=== PATIENT | male | born 1975 | race Caucasian/White ===

== ENCOUNTER 2017-02-17 15:40 | Inpatient (IN) | payer MEDICARE, MEDICAID ==
--- NOTE | 2017-02-17 16:24 | ED ---
Psych HPI - General Chief Complaint: Psychiatric Symptoms Stated Complaint: Mental Health Eval Time Seen by Provider: 02/17/17 15:55 Source: patient, RN notes reviewed Mode of arrival: ambulatory Limitations: no limitations - History of Present Illness Initial Comments: 41-year-old male presents emergency Department with chief complaint of psychiatric evaluation. Patient states that he is depressed, suicidal and very anxious. Patient states that he's been stable for lasted for years. He has not see [facility] currently but states he used to. Patient states his been having thoughts of overdosing on medication that is not attempted this. Patient states he has been hospitalized in the past. Patient denies any physical complaints. Patient states usually has problems with his psychiatric issues in the spring. Patient states that his anxiety is uncontrolled. Patient denies any illicit drug use or alcohol use. - Related Data Home Medications Medication Instructions Recorded Confirmed Fluticasone Nasal [place] [Flonase 1 spray EA NOSTRIL QAM PRN 02/11/16 02/17/17 Nasal [place]] Propranolol HCl [Inderal] 60 mg PO BID 02/11/16 02/17/17 ARIPiprazole [Abilify] 15 mg PO HS 07/13/16 02/17/17 Levothyroxine Sodium [Synthroid] 50 mcg PO QAM 07/13/16 02/17/17 lamoTRIgine [LaMICtal] 150 mg PO HS 07/13/16 02/17/17 Acetaminophen Tab [Tylenol Tab] 1,000 mg PO TID PRN 02/17/17 02/17/17 Tiotropium 18 Mcg/Puff [Spiriva] 1 cap INHALATION RT-DAILY 02/17/17 02/17/17 Previous Rx's Medication Instructions Recorded buPROPion XL [Wellbutrin XL] 150 mg PO DAILY #30 tab.[id number] 02/14/16 Allergies Allergy/AdvReac Type Severity Reaction Status Date / Time montelukast sodium Allergy Severe Swelling Verified 02/17/17 17:03 [From [place]] codeine Allergy Rash/Hives/ Verified 02/17/17 17:03 Itching Review of Systems ROS Statement: Those systems with pertinent positive or pertinent negative responses have been documented in the HPI. ROS Other: All systems not noted in ROS Statement are negative. Past Medical History Past Medical History: COPD, Liver Disease Additional Past Medical History / Comment(s): hepatitis b and c (per pt: "not detectable). bipolar type II, borderline personality disorder History of Any Multi-Drug Resistant Organisms: None Reported Additional Past Surgical History / Comment(s): deviated septum repair, dental extractions Past Anesthesia/Blood Transfusion Reactions: Family History of Problems w/ Anesthesia Additional Past Anesthesia/Blood Transfusion Reaction / Comment(s): Pt's. sisters b/p dropped while under anesthesia Past Psychological History: Anxiety, Bipolar, Depression Smoking Status: Current every day smoker Past Alcohol Use History: Occasional Past Drug Use History: None Reported - Past Family History Mother Family Medical History: COPD Additional Family Medical History / Comment(s): Bipolar D.O. Father Family Medical History: Cancer, Coronary Artery Disease (CAD), Hypertension, Liver Disease, Myocardial Infarction ([place]) Additional Family Medical History / Comment(s): Five MA's; Hep C and Liver Cancer General Exam Limitations: no limitations General appearance: alert, in no apparent distress Head exam: Present: atraumatic, normocephalic, normal inspection Eye exam: Present: normal appearance, PERRL, EOMI. Absent: scleral icterus, conjunctival injection, periorbital swelling ENT exam: Present: normal exam, normal oropharynx, mucous membranes moist, TM's normal bilaterally, normal external ear exam Neck exam: Present: normal inspection, full ROM. Absent: tenderness, meningismus, lymphadenopathy Respiratory exam: Present: normal lung sounds bilaterally. Absent: respiratory distress, wheezes, rales, rhonchi, stridor Cardiovascular Exam: Present: regular rate, normal rhythm, normal heart sounds. Absent: systolic murmur, diastolic murmur, rubs, gallop, clicks GI/Abdominal exam: Present: soft, normal bowel sounds. Absent: distended, tenderness, guarding, rebound, rigid Neurological exam: Present: alert Psychiatric exam: Present: anxious Skin exam: Present: warm, dry, intact, normal color. Absent: rash Course Vital Signs 02/17/17 15:49 Temperature 98.3 F Pulse Rate 75 Respiratory 20 Rate Blood Pressure 122/87 O2 Sat by Pulse 97 Oximetry Medical Decision Making - Lab Data Lab Results 02/17/17 Range/Units 16:03 Urine Opiates Screen Not Detected (NotDetected) Ur Oxycodone Screen Not Detected (NotDetected) Urine Methadone Screen Not Detected (NotDetected) Ur Propoxyphene Screen Not Detected (NotDetected) Ur Barbiturates Screen Not Detected (NotDetected) U Tricyclic Antidepress Not Detected (NotDetected) Ur Phencyclidine Scrn Not Detected (NotDetected) Ur Amphetamines Screen Not Detected (NotDetected) U Methamphetamines Scrn Not Detected (NotDetected) U Benzodiazepines Scrn Not Detected (NotDetected) Urine Cocaine Screen Not Detected (NotDetected) U Marijuana (THC) Screen Detected H (NotDetected) Disposition Clinical Impression: Suicidal ideation, Depression Disposition: ADMITTED IP TO THIS HOSP Condition: Stable
[2017-02-17] MEDS ORDERED: LORazepam 1 MG TAB PO STA (18:32)
[2017-02-17] MEDS ORDERED: MAGNESIUM HYDROXIDE 2,400 MG/10 ML CUP PO PRN (22:41)
[2017-02-17] MEDS ORDERED: ZIPRASIDONE 20 MG VIAL IM PRN (22:41)
[2017-02-18 00:59] VITALS: BMI 26.4
[2017-02-18] MEDS: LEVOTHYROXINE 50 MCG TAB PO SCH (06:09)
[2017-02-18] MEDS ORDERED: PROPRANOLOL 20 MG TAB PO SCH (09:00)
[2017-02-18] MEDS ORDERED: lamoTRIgine 100 MG TAB PO SCH (09:00)
[2017-02-18] MEDS ORDERED: ARIPiprazole 15 MG TAB PO SCH (09:00)
[2017-02-18] MEDS: NICOTINE 14MG/24HR PATCH TRANSDERM SCH (09:05)
[2017-02-18] MEDS: LORazepam 1 MG TAB PO PRN ×2 (09:05→17:26)
[2017-02-18] MEDS: TIOTROPIUM 18 MCG/PUFF INHALER INHALATION SCH ×2 (09:19→17:27)
[2017-02-18 09:45] LABS: Basophils # (A) 0.1 k/uL (0-0.2); Basophils % (A) 1 %; CH 30.4; CHCM 34.2; Eosinophils # (A) 0.2 k/uL (0-0.7); Eosinophils % (A) 2 %; HCT 51.4 % (39.0-53.0); HDW 2.56; Luc # (Auto) 0.17; Luc % (Auto) 2; Lymphocytes # (A) 3.9 k/uL (1.0-4.8); Lymphocytes % (A) 39 %; MCH 29.7 pg (25.0-35.0); MCHC 33.2 g/dL (31.0-37.0); MCV 89.5 fL (80.0-100.0); Mean Platelet Volume 7.6; Monocytes # (A) 0.5 k/uL (0-1.0); Monocytes % (A) 5 %; Neutrophils % (A) 50 %; RBC 5.74 m/uL (4.30-5.90); RDW 13.9 % (11.5-15.5); WBC 9.9 k/uL (3.8-10.6); WBC (Perox) 9.75
[2017-02-18 10:54] LABS: ALT 36 U/L (21-72); AST 31 U/L (17-59); Alkaline Phosphatase 75 U/L (38-126); Anion Gap 16 mmol/L; Blood Urea Nitrogen 18 mg/dL (9-20); Calcium 10.1 mg/dL (8.4-10.2); Carbon Dioxide 24 mmol/L (22-30); Chloride 102 mmol/L (98-107); Glucose 93 mg/dL (74-99); Non-African American GFR(MDRD) 54 (>60 ml/min/1.73 sqM); Potassium 4.4 mmol/L (3.5-5.1); Sodium 142 mmol/L (137-145); Total Protein 8.3 g/dL (6.3-8.2)
[2017-02-18] MEDS ORDERED: lamoTRIgine 25 MG TAB PO STA (12:55)
[2017-02-18] MEDS ORDERED: ARIPiprazole 5 MG TAB PO STA (12:55)
[2017-02-18] MEDS: MAG HYDROX/AL HYDROX/SIMETH 30 ML CUP PO PRN (12:58)
--- NOTE | 2017-02-18 15:04 | P.CONS ---
History of Present Illness - Reason for Consult Consult date: 02/18/17 Medical management - History of Present Illness This is a 41-year-old male. His primary care physician has been Dr. Migel aCgle. He has a past medical history of COPD, hypertension, hyperlipidemia, both thyroidism hepatitis B and C diagnosed 10 years ago and followed up with Tanya at Dr. [facility] and found to have no treatment required, bipolar type II, borderline personality disorder, tobacco use and dependence, marijuana use. Patient states that he feels anxiety on a daily basis about a Worsening until he felt he was having panic attacks. He also developed suicidal thoughts. His neighbors brought him into [facility] emergency center for evaluation. He had an was 1.42. Urine drug screen was positive for marijuana. Previous urinalysis was noted in June 2016 with protein in his urine. Patient complains of indigestion and his hips feeling weak. 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 He denies any previous history of known kidney failure. He states he has been a patient at [facility] with Jacquelyn but due to financial reasons he is not able to follow up there until his bills are paid. He is also followed with Dr. Jordan at [facility] in the past but not in the past 5 years. Review of Systems All systems: negative Constitutional: Denies chills, Denies fever Eyes: bilateral blurred vision, denies pain Ears, nose, mouth and throat: Denies headache, Denies sore throat Cardiovascular: Denies chest pain, Denies shortness of breath Respiratory: Denies cough Gastrointestinal: Reports indigestion, Denies abdominal pain, Denies diarrhea, Denies nausea, Denies vomiting Musculoskeletal: Denies myalgias Integumentary: Denies pruritus, Denies rash Neurological: Denies numbness, Denies weakness Psychiatric: Denies anxiety, Denies depression Endocrine: Denies fatigue, Denies weight change Past Medical History Past Medical History: COPD, Hyperlipidemia, Hypertension, Liver Disease, Thyroid Disorder Additional Past Medical History / Comment(s): hepatitis b and c (per pt: "not detectable). bipolar type II, borderline personality disorder History of Any Multi-Drug Resistant Organisms: None Reported Additional Past Surgical History / Comment(s): deviated septum repair, dental extractions Past Anesthesia/Blood Transfusion Reactions: No Reported Reaction, Family History of Problems w/ Anesthesia Additional Past Anesthesia/Blood Transfusion Reaction / Comm: Pt's. sisters b/p dropped while under anesthesia Past Psychological History: Anxiety, Bipolar, Depression Smoking Status: Current every day smoker Past Alcohol Use History: Occasional Additional Past Alcohol Use History / Comment(s): Patient is a smoker one pack of cigarettes per week since he was 14 years of age. He uses marijuana rarely. He denies medical marijuana card. He denies any street drug use. He drinks alcohol such as beer or wine occasionally. He denies any use of heroin for greater than 4 years. Past Drug Use History: None Reported - Past Family History Mother Family Medical History: COPD Additional Family Medical History / Comment(s): Other at age 54 due to an axonal drug overdose with history of coronary artery disease and Bipolar D.O. Father Family Medical History: Cancer, Coronary Artery Disease (CAD), Hypertension, Liver Disease, Myocardial Infarction ([place]) Additional Family Medical History / Comment(s): Father at age 55 due to liver cancer secondary to hepatitis C but not alcohol related Five UT's Sister(s) Additional Family Medical History / Comment(s): He has one half sister with depression and possible borderline personality, severe COPD, irritable bowel syndrome, fibromyalgia. Brother(s) Additional Family Medical History / Comment(s): Patient has one brother with history of brain aneurysm with history of methamphetamine use. Patient does not have any children. Medications and Allergies Home Medications Medication Instructions Recorded Confirmed Type Fluticasone Nasal [place] [Flonase 1 spray EA NOSTRIL QAM PRN 02/11/16 02/18/17 History Nasal [place]] Propranolol HCl [Inderal] 60 mg PO BID 02/11/16 02/18/17 History ARIPiprazole [Abilify] 15 mg PO HS 07/13/16 02/18/17 History Levothyroxine Sodium [Synthroid] 50 mcg PO QAM 07/13/16 02/18/17 History lamoTRIgine [LaMICtal] 150 mg PO HS 07/13/16 02/18/17 History Acetaminophen Tab [Tylenol Tab] 1,000 mg PO TID PRN 02/17/17 02/18/17 History Tiotropium 18 Mcg/Puff [Spiriva] 1 cap INHALATION RT-DAILY 02/17/17 02/18/17 History Allergies Allergy/AdvReac Type Severity Reaction Status Date / Time montelukast sodium Allergy Severe Swelling Verified 02/18/17 01:10 [From [place]] codeine Allergy Rash/Hives/ Verified 02/18/17 01:10 Itching Physical Exam Vitals: Vital Signs Temp Pulse Resp BP Pulse Ox 02/18/17 09:05 107 H 20 113/80 02/18/17 01:14 98.0 F 94 18 109/74 02/18/17 00:49 98.1 F 80 20 113/85 96 Intake and Output 02/17/17 02/18/17 02/18/17 22:59 06:59 14:59 Other: Weight 86.046 kg Gen: This is a 41-year-old male. He is cooperative and appears to be in no acute distress. HEENT: Head is atraumatic, normocephalic. Pupils equal, round. Sclerae is anicteric. NECK: Supple. No JVD. No lymphadenopathy. No thyromegaly. LUNGS: Clear to auscultation. No wheezes or rhonchi. No intercostal retractions. HEART: Regular rate and rhythm. No murmur. ABDOMEN: Soft. Bowel sounds are present. No masses. No tenderness. EXTREMITIES: No pedal edema. No calf tenderness. NEUROLOGICAL: Patient is awake, alert and oriented x3. Cranial nerves 2 through 12 are grossly intact. Results CBC & Chem 7: 02/18/17 09:08 02/18/17 09:08 Labs: Abnormal Lab Results - Last 24 Hours (Table) 02/18/17 Range/Units 09:08 Creatinine 1.42 H (0.66-1.25) mg/dL Total Protein 8.3 H (6.3-8.2) g/dL Assessment and Plan Plan: 1. Depression with suicidal ideation. Patient admitted to the mental health unit. Continue current plan of care. 2. Tobacco use and dependence. Continue nicotine patch. 3. Hypothyroidism. Continue Synthroid. 4. Hypertension. Continue Inderal. 5. COPD. Continue Spiriva. 6. Proteinuria. Protein electrophoresis and A lambda free light chains ordered. Impression and plan of care have been directed as dictated by the signing physician. Coleen Justice nurse practitioner acting as scribe for signing physician. Time with Patient: Greater than 30
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
[2017-02-19] MEDS: LEVOTHYROXINE 50 MCG TAB PO SCH (05:45)
[2017-02-19] MEDS: LORazepam 1 MG TAB PO PRN ×3 (06:47→21:41)
[2017-02-19] MEDS: NICOTINE 14MG/24HR PATCH TRANSDERM SCH (08:50)
[2017-02-19] MEDS: lamoTRIgine 100 MG TAB PO SCH (08:50)
[2017-02-19] MEDS: MAG HYDROX/AL HYDROX/SIMETH 30 ML CUP PO PRN ×2 (10:10→13:04)
[2017-02-19] MEDS: PROPRANOLOL 20 MG TAB PO SCH (10:32)
[2017-02-19] MEDS: TIOTROPIUM 18 MCG/PUFF INHALER INHALATION SCH (10:38)
[2017-02-19 11:36] LABS: Free Kappa Lt Chain Qnt, Serum 2.07 mg/dL (0.33 - 1.94); Kappa/Lambda Light Chain Ratio 1.23 (0.26 - 1.65)
--- NOTE | 2017-02-19 13:48 | PN ---
DATE OF SERVICE: 02/19/2017 CHIEF COMPLAINT: The patient was depressed. He had suicide thoughts. He was very anxious. He had thoughts of overdosing on his medication. INTERVAL HISTORY: Patient has been doing fair. He had a quiet evening last night. He slept fairly well. He did request p.r.n. Ativan this morning as he said he was quite anxious, thinking about some family issues. Today he has been up and about. He attends groups some of the time and then, sometimes not. He says that if he does not attend groups, he usually walks back and forth in the [place] to try to stay active quiet and quiet some of his anxiety. He notes that he has had some suicide thoughts today, though overall feels he is somewhat better. He thinks his mood is improved. He feels taking the Abilify in the morning makes him sleepy as he had been taking the Abilify at bedtime. He wanders about restarting Wellbutrin as he says that has been an antidepressant for him in the past. He has been cooperative. He does interact some with others. He tends to be somewhat reserved in his manner. It is noted that he may have be a little inhibited socially because he does not have polygrip for his dentures and struggles some with that. He is getting some polygrip brought in and he seems to have some discomfort in talking when his dentures are loose. He has not had change in his general health. It is noted that his creatinine is elevated at 1.4. We will ask Dr. Briscoe for follow-up in regards to that. He tolerates his psychotropic medications. MENTAL STATUS: Patient gave good eye contact. Psychomotor activity was a little restless. Speech was clear. He answered questions with brief responses. He was not too spontaneous, though he was somewhat interactive. His affect was blunted. His mood reserved. He seemed somewhat anxious and a little distressed. ASSESSMENT: I will continue the current diagnosis and treatment plan. I discussed medication options with the patient. At this point, I recommended we increase his Abilify from 20 mg a day up to 30 mg a day. He will get 10 mg dose at bedtime tonight and then tomorrow will start 30 mg at bedtime. He will also continue Lamictal 200 mg a day. I discussed that at this point, given that he has shown a little bit of improvement with the increase in Abilify, it might be to his benefit to try to keep his medications simplified, and see what benefit he gets by maximizing just his primary psychotropic. Patient did ask about if he were to have muscle cramps, which he had in the past with Haldol. He is aware that Cogentin is an intervention for that and said that he would be able to talk to the covering physician over the weekend if that was happening and perhaps requested Cogentin if appropriate. We will look at setting up a family meeting over the weekend or early in the week. He did note that he had a contact with his manager drug and found out that his rent has been increased, though he is not concerned about that he possibly could get evicted. We will continue to focus on stabilization and discharge planning.
[2017-02-19] MEDS: FLUTICASONE 50MCG/SPRAY NASAL 16GM EA NOSTRIL SCH (18:05)
[2017-02-19] MEDS ORDERED: ARIPiprazole 10 MG TAB PO ONE (21:00)
[2017-02-20] MEDS: LEVOTHYROXINE 50 MCG TAB PO SCH (06:32)
[2017-02-20] MEDS: LORazepam 1 MG TAB PO PRN ×2 (07:49→16:19)
[2017-02-20] MEDS: FLUTICASONE 50MCG/SPRAY NASAL 16GM EA NOSTRIL SCH (08:49)
[2017-02-20] MEDS: PROPRANOLOL 20 MG TAB PO SCH (08:52)
[2017-02-20] MEDS: NICOTINE 14MG/24HR PATCH TRANSDERM SCH (08:52)
[2017-02-20] MEDS: lamoTRIgine 100 MG TAB PO SCH (08:53)
[2017-02-20] MEDS: ACETAMINOPHEN TAB 325 MG TAB PO PRN (08:54)
--- NOTE | 2017-02-20 09:28 | P.PN ---
Progress Note - Text Interval history: The patient is found in the hallway he follows me to an interview room. The patient was admitted for suicidal ideation and suspected paranoia. The patient states that he is doing better in this environment. He does chronically struggle with suicidal thoughts and continues to struggle with those today. He continues on Abilify and Lamictal. I believe the Abilify dose has been adjusted while he has been here. He states he would like his Wellbutrin started as it is the only antidepressant that has helped him in the past. He was previously taking 150 mg of the XL formulation. He is proud reports that he's used no opiates in 4 years he uses no marijuana and quit cigarette smoking. He does have his own residence, an apartment. He states his plan is to go to the [facility] program after discharge from our mental health unit. Mental status exam: The patient is a male he seated calmly in his chair. He is dressed in his own clothing. Eye contact is appropriate speech is fluent spontaneous nonpressured. He maintains a constricted affect. He reports recent depressed mood with hopelessness thoughts and suicidal ideation but he is known to have chronic suicidal ideation. He has not participated in any self-injurious behavior in the recent past. He reports no homicidal ideation. He is endorsing no auditory or visual hallucinations he is endorsing no specific delusions today there is no evidence of psychosis. He demonstrates no verbal or physical aggressiveness. Insight and general limited. He is oriented to person place and date. Plan: The patient will continue on his current medications we will restart the Wellbutrin XL 150 mg of the morning. We will continue to monitor him for safety and encourage his participation in the milieu. Vital signs reviewed they are within normal limits.
[2017-02-20] MEDS: TIOTROPIUM 18 MCG/PUFF INHALER INHALATION SCH (09:44)
[2017-02-20] MEDS: buPROPion XL 150 MG TAB.ER.24H PO SCH (10:19)
[2017-02-20] MEDS: ARIPiprazole 15 MG TAB PO SCH (21:29)
[2017-02-21] MEDS: LEVOTHYROXINE 50 MCG TAB PO SCH (06:05)
[2017-02-21] MEDS: LORazepam 1 MG TAB PO PRN ×3 (07:41→22:14)
[2017-02-21] MEDS: FLUTICASONE 50MCG/SPRAY NASAL 16GM EA NOSTRIL SCH (08:52)
[2017-02-21] MEDS: buPROPion XL 150 MG TAB.ER.24H PO SCH (08:53)
[2017-02-21] MEDS: lamoTRIgine 100 MG TAB PO SCH (08:53)
[2017-02-21] MEDS: NICOTINE 14MG/24HR PATCH TRANSDERM SCH (08:53)
[2017-02-21] MEDS: PROPRANOLOL 20 MG TAB PO SCH (08:53)
[2017-02-21] MEDS: TIOTROPIUM 18 MCG/PUFF INHALER INHALATION SCH (08:57)
--- NOTE | 2017-02-21 13:50 | P.PN ---
Progress Note - Text Interval history: The patient is found in group he follows me to an interview room. He reports today is not a good day he feels more depressed. Despite feeling more depressed he is getting out and attending groups. He is endorsing no thoughts of harming himself here on the mental health unit. We discussed his medications his questions were answered. Mental status exam: The patient is alert he is dressed in his own clothing he seated calmly. Eye contact is appropriate speech is fluent and spontaneous nonpressured. He described his mood as being depressed today affect is blunted. He is reporting no homicidal ideation. He reports no auditory or visual hallucinations endorses no specific delusions. Insight and judgment limited. He demonstrates no verbal or physical aggressiveness. No abnormal involuntary movements appreciated. He is oriented to person place and date. Plan: The patient will continue on his current psychotropic medications. We will continue to monitor him for safety. Vital signs reviewed.
[2017-02-21] MEDS: ARIPiprazole 15 MG TAB PO SCH (20:28)
[2017-02-22] MEDS: LEVOTHYROXINE 50 MCG TAB PO SCH (06:26)
[2017-02-22] MEDS: NICOTINE 14MG/24HR PATCH TRANSDERM SCH (08:57)
[2017-02-22] MEDS: FLUTICASONE 50MCG/SPRAY NASAL 16GM EA NOSTRIL SCH (08:58)
[2017-02-22] MEDS: LORazepam 1 MG TAB PO PRN ×2 (08:58→16:27)
[2017-02-22] MEDS: buPROPion XL 150 MG TAB.ER.24H PO SCH (08:58)
[2017-02-22] MEDS: lamoTRIgine 100 MG TAB PO SCH (08:58)
[2017-02-22] MEDS: PROPRANOLOL 20 MG TAB PO SCH (08:59)
[2017-02-22] MEDS: TIOTROPIUM 18 MCG/PUFF INHALER INHALATION SCH (09:30)
[2017-02-22] MEDS: PSYLLIUM HUSK 100% 6 GM PACKET PO SCH (10:48)
--- NOTE | 2017-02-22 11:29 | P.PN ---
Progress Note - Text Interval history: The patient is found in group he follows me to an interview room. He reports his mood is depressed he circled that he had some suicidal thoughts during goalsetting meeting. He states that he doesn't really want to attend groups but he continues to push himself to do so. We discussed the plan of transitioning him to partial hospital care upon discharge from this unit. He reports he slept last night appetite stable area Mental status exam: The patient is a male appearing his stated age. He seated calmly eye contact is appropriate speech is fluent spontaneous nonpressured. He reports his mood is depressed he tells me this morning he has no acute suicidal ideation but in group indicated that he might. No homicidal ideation intent or plan. He is endorsing no auditory or visual hallucinations no specific delusions. He demonstrates no verbal or physical aggressiveness. Insight and judgment limited. Cognitively he is oriented to person place and date. He maintains a bland affect throughout the session. Plan: The patient will continue on his current medications his efforts in attending groups are validated. We will anticipate a possible transition to partial hospital care midweek or later in the week depending on his clinical improvement. Vital signs reviewed. We will continue to monitor for safety.
[2017-02-22] MEDS: ACETAMINOPHEN TAB 325 MG TAB PO PRN (12:44)
[2017-02-22] MEDS: MAG HYDROX/AL HYDROX/SIMETH 30 ML CUP PO PRN (17:44)
[2017-02-22] MEDS: ARIPiprazole 15 MG TAB PO SCH (20:14)
[2017-02-23] MEDS: LORazepam 1 MG TAB PO PRN ×3 (00:17→16:00)
[2017-02-23] MEDS: LEVOTHYROXINE 50 MCG TAB PO SCH (06:19)
[2017-02-23] MEDS: PSYLLIUM HUSK 100% 6 GM PACKET PO SCH (08:43)
[2017-02-23] MEDS: FLUTICASONE 50MCG/SPRAY NASAL 16GM EA NOSTRIL SCH (08:43)
[2017-02-23] MEDS: PROPRANOLOL 20 MG TAB PO SCH (08:43)
[2017-02-23] MEDS: NICOTINE 14MG/24HR PATCH TRANSDERM SCH (08:43)
[2017-02-23] MEDS: buPROPion XL 150 MG TAB.ER.24H PO SCH (08:43)
[2017-02-23] MEDS: lamoTRIgine 100 MG TAB PO SCH (08:43)
[2017-02-23 10:13] LABS: Anion Gap 10 mmol/L; Blood Urea Nitrogen 11 mg/dL (9-20); Calcium 9.8 mg/dL (8.4-10.2); Carbon Dioxide 26 mmol/L (22-30); Chloride 106 mmol/L (98-107); Glucose 109 mg/dL (74-99); Non-African American GFR(MDRD) >60 (>60 ml/min/1.73 sqM); Potassium 4.4 mmol/L (3.5-5.1); Sodium 142 mmol/L (137-145)
[2017-02-23] MEDS: ACETAMINOPHEN TAB 325 MG TAB PO PRN (11:08)
[2017-02-23 12:37] LABS: Appearance,Urine Clear (Clear); Bilirubin,Urine Negative (Negative); Glucose,Urine (UA) Negative (Negative); Ketones,Urine Negative (Negative); Leukocyte Esterase,Urine Negative (Negative); Mucus,Urine Rare /hpf; Nitrite,Urine Negative (Negative); PH, Urine 6.5 (5.0-8.0); Particle Count 605; Protein,Urine Negative (Negative); RBC,Urine 1 /hpf (0-5); Specific Gravity,Urine 1.004 (1.001-1.035); UA Billing (MACRO vs. MICRO) MICRO; Urobilinogen,Urine <2.0 mg/dL (<2.0); WBC,Urine <1 /hpf (0-5)
[2017-02-23] MEDS: TIOTROPIUM 18 MCG/PUFF INHALER INHALATION SCH (13:42)
[2017-02-23] MEDS: MAG HYDROX/AL HYDROX/SIMETH 30 ML CUP PO PRN (15:32)
[2017-02-23] MEDS ORDERED: diphenhydrAMINE 50 MG CAP PO PRN (16:46)
--- NOTE | 2017-02-23 17:07 | P.PN ---
Progress Note - Text Subjective: Patient was called from his room, pleasant and cooperative for interview. Patient reports that he is no longer having suicidal ideation, that he is using his DBT skills, and is looking forward to the partial program. Patient reports that he has not cut himself for 3 years now. Patient states that he had trouble sleeping last night and is requesting one dose of Ambien. Discussed his current medication which at this point is including Ativan 1 mg 3 times a day. Patient reports that he does have anxiety, but will use techniques to try to tolerate it. Objective: The patient presents alert and cooperative. Initially sat calmly, without any agitated behavior. However with discussion of Ativan he displayed anxiety. Reports that his mood is ok but anxious. Affect is congruent, neutral. Patient denies having any suicidal or homicidal ideation intent or plan. Patient denies any auditory or visual hallucinations. There is no evidence of any delusional thought content. His thought process is linear and goal-directed. Patient's speech is fluent and nonpressured. His memory and concentration is grossly intact for the purposes of this session. Assessment: Pt with history cutting, suicidal ideation, impulsivity and poor coping skills, no longer reporting suicidal ideation. No evidence of psychosis. No evidence of danger to self or others. Plan: Due to impulsivity ativan is not a class of medication for him to be discharged on. He did not want to stay a few more days to taper the dose, he want to begin the partial day program. Discussed options to reduce it gradually with discharge on or Wednesday, patient did not want to stay longer. So will give him a reduced dose and discharge with 2 days of medication (Ativan). Will give Benadryl 25 mg 3 times a day when necessary anxiety. Will give trazodone 50 mg at bedtime. We'll discuss tomorrow with social work and [facility] rep regarding partial day program.
[2017-02-23] MEDS: ARIPiprazole 15 MG TAB PO SCH (20:51)
[2017-02-23] MEDS ORDERED: lamoTRIgine 100 MG TAB PO SCH (21:00)
[2017-02-23] MEDS ORDERED: traZODone HCL 50 MG TAB PO SCH (21:00)
[2017-02-23] MEDS ORDERED: LORazepam 0.5 MG TAB PO PRN (22:00)
[2017-02-23] MEDS: diphenhydrAMINE 25 MG CAP PO PRN (22:07)
[2017-02-24 06:29] VITALS: RESP 16; TEMP 98
[2017-02-24] MEDS: LEVOTHYROXINE 50 MCG TAB PO SCH (07:18)
[2017-02-24] MEDS: buPROPion XL 150 MG TAB.ER.24H PO SCH (09:09)
[2017-02-24] MEDS: PSYLLIUM HUSK 100% 6 GM PACKET PO SCH (09:10)
[2017-02-24] MEDS: FLUTICASONE 50MCG/SPRAY NASAL 16GM EA NOSTRIL SCH (09:10)
[2017-02-24] MEDS: NICOTINE 14MG/24HR PATCH TRANSDERM SCH (09:12)
[2017-02-24] MEDS: lamoTRIgine 100 MG TAB PO SCH (09:12)
[2017-02-24] MEDS: PROPRANOLOL 20 MG TAB PO SCH (09:12)
[2017-02-24 09:15] VITALS: BP 115/78; PULSE 101
[2017-02-24] MEDS: diphenhydrAMINE 25 MG CAP PO PRN (12:41)
--- NOTE | 2017-02-24 13:01 | P.DS ---
Providers Date of admission: 02/17/17 19:26 Expected date of discharge: 02/24/17 Attending physician: Franci Pereyra MD Consults: 02/17/17 22:41 Consult Physician Routine Consulting Provider: Suellen Briscoe Consult Reason/Comments: H & P and medical follow up Do you want consulting provider notified?: Yes, Notify in am [facility] Course: Patient was having increasing anxiety, stress related to a notice from his apartment complex that he feared was an eviction notice, he became suicidal and came to ER and admitted to MHU. Patient was noted to be postive for cannabis on UDS. His abilify was increased from 15mg Qday to 30mg Qday. His lamictal was increased from 150mg to 200mg, it was noted however that he was receiving 150mg and 200mg, this has been corrected for discharge. Patient found out that the notice was not an eviction notice but a rent increase , this help resolve his anxiety and by Wednesday of this week his suicidal ideation was decreasing and no suicidal ideation was endorsed yesterday. He was interested in the partial day program, and was accepted. He has an appointment set for tomorrow. Patient responded well to the units miliue and the medication changes. He is not having anxiety even though his ativan was reduced yesterday, he will receive a tapering dose for the next 4 days, a total of 6 tablets of 0.5mg. Patient alert and oriented 3, good eye contact, fair groomed in street clothing. Speech normal volume, rate and production. Coherent, logical and goal directed thought process. No WILMAN, no FOI. [No TB/TW/ TI] Denied auditory and visual hallucinations. Denied paranoid ideation, delusions or IOR. Memory good Cognition average Mood neutral to euthymic, affect and full range decreased intensity, congruent with mood. Denies suicidal ideation, denies homicidal ideation. Insight partial; Judgement intact for treatment purposes Assessment: Patient is psychiatrically stable, no suicidal ideation, no homicidal ideation. No psychosis, no arcelia, no hypomania. Major depressive disorder recurrent Cannabis use, mild Plan: Discharge to home Has appointment for partial day program. Pertinent Studies: None Procedures: None Patient Condition at Discharge: Stable Plan - Discharge Summary New Discharge Prescriptions: ARIPiprazole [Abilify] 30 mg PO HS #60 tab LORazepam [Ativan] 0.5 mg PO BID PRN #6 tab PRN Reason: Agitation Or Acute Anxiety Nicotine 14Mg/24Hr Patch [Habitrol] 1 patch TRANSDERM DAILY #14 patch diphenhydrAMINE [Benadryl] 25 mg PO TID PRN #30 cap PRN Reason: Anxiety lamoTRIgine [LaMICtal] 200 mg PO DAILY 30 Days traZODone HCL [Desyrel] 50 mg PO HS 30 Days Discharge Medication List Fluticasone Nasal [place] [Flonase Nasal [place]] 1 spray EA NOSTRIL QAM PRN [History] buPROPion XL [Wellbutrin XL] 150 mg PO DAILY #30 tab.er.24h 02/14/16 [Rx] Levothyroxine Sodium [Synthroid] 50 mcg PO QAM 07/13/16 [History] lamoTRIgine [LaMICtal] 150 mg PO HS 07/13/16 [History] Tiotropium 18 Mcg/Puff [Spiriva] 1 cap INHALATION RT-DAILY 02/17/17 [History] ARIPiprazole [Abilify] 30 mg PO HS #60 tab 02/24/17 [Rx] LORazepam [Ativan] 0.5 mg PO BID PRN #6 tab 02/24/17 [Rx] Nicotine 14Mg/24Hr Patch [Habitrol] 1 patch TRANSDERM DAILY #14 patch 02/24/17 [ Rx] Propranolol HCl [Inderal] 60 mg PO DAILY #0 02/24/17 [Rx] diphenhydrAMINE [Benadryl] 25 mg PO TID PRN #30 cap 02/24/17 [Rx] lamoTRIgine [LaMICtal] 200 mg PO DAILY 30 Days 02/24/17 [Rx] traZODone HCL [Desyrel] 50 mg PO HS 30 Days 02/24/17 [Rx] Follow up Appointment(s)/Referral(s): intake,intake [Other] - 02/25/17 7:30 am Yari Schuster MD [Primary Care Provider] - 1-2 days (A Chin will need repeat free Archie/Lambda LC and urine protein by internal fixation in 6 months) Patient Instructions/Handouts: Depression (GEN), Suicide Prevention for Adults (DC) Discharge Disposition: HOME SELF-CARE
[2017-02-24] MEDS: TIOTROPIUM 18 MCG/PUFF INHALER INHALATION SCH (13:19)
== END 2017-02-24 16:50 | disposition home or self-care (01) | DRG 885 ==
LOC: SUPCPDRO 15:40 → EC 15:40 → 3MHU 19:26
PROVIDERS: ADMIT Psychiatry & Neurology Addiction Medicine; ATTEND Psychiatry & Neurology Addiction Medicine
DX: F33.2 Major depressive disorder, recurrent severe without psychotic features (principal); R45.851 Suicidal ideations; I10 Essential (primary) hypertension; E03.9 Hypothyroidism, unspecified; E78.5 Hyperlipidemia, unspecified; F12.10 Cannabis abuse, uncomplicated; F17.200 Nicotine dependence, unspecified, uncomplicated; F41.0 Panic disorder [episodic paroxysmal anxiety]; F43.10 Post-traumatic stress disorder, unspecified; F60.3 Borderline personality disorder; J44.9 Chronic obstructive pulmonary disease, unspecified; J45.909 Unspecified asthma, uncomplicated; Z79.899 Other long term (current) drug therapy; Z81.8 Family history of other mental and behavioral disorders; Z82.49 Family history of ischemic heart disease and other diseases of the circulatory system
CPT/HCPCS: 80048; 80053; 80306; 81001; 82075; 83883; 84165; 84443; 85025; 94640

== ENCOUNTER 2017-06-21 13:56 | Emergency (ER) | payer MEDICARE, OTHER ==
[2017-06-21 14:02] VITALS: BP 117/86; PULSE 78; RESP 18; TEMP 97.7
[2017-06-21] MEDS ORDERED: KETOROLAC 30 MG/ML 1 ML VIAL IM STA (14:19)
--- NOTE | 2017-06-21 14:31 | ED ---
Abdominal Pain HPI - General Chief Complaint: Abdominal Pain Stated Complaint: Abd Pain Time Seen by Provider: 06/21/17 14:04 Source: patient Mode of arrival: ambulatory Limitations: no limitations - History of Present Illness Initial Comments: Patient is a 42-year-old male presents with a chief complaint of abdominal pain. Patient states that he has had a bulge in his belly button for several months now. He states that it has been getting bigger and more painful as time goes on. The patient showed his neighbor yesterday who used to be an EMT who told him that he needed to get it checked out today patient states that his pain is aggravated by lifting heavy objects or straining to have a bowel movement. It alleviated by certain positions. Timing is constant. MD Complaint: abdominal pain Onset/Timin -: month(s) Location: periumbilical Radiation: none Migration to: no migration Quality: sharp Consistency: intermittent Improves With: rest Worsens With: other (straining, heavy lifting) Associated Symptoms: denies other symptoms - Related Data Home Medications Medication Instructions Recorded Confirmed Fluticasone Nasal [place] [Flonase 1 spray EA NOSTRIL QAM PRN 02/11/16 02/18/17 Nasal [place]] Levothyroxine Sodium [Synthroid] 50 mcg PO QAM 07/13/16 02/18/17 Previous Rx's Medication Instructions Recorded buPROPion XL [Wellbutrin XL] 150 mg PO DAILY #30 tab.er.24h 02/14/16 ARIPiprazole [Abilify] 30 mg PO HS #60 tab 02/24/17 LORazepam [Ativan] 0.5 mg PO BID PRN #6 tab 02/24/17 Nicotine 14Mg/24Hr Patch [Habitrol] 1 patch TRANSDERM DAILY #14 patch 02/24/17 Propranolol HCl [Inderal] 60 mg PO DAILY #0 02/24/17 Tiotropium 18 Mcg/Puff [Spiriva] 1 cap INHALATION RT-DAILY 30 Days 02/24/17 diphenhydrAMINE [Benadryl] 25 mg PO TID PRN #30 cap 02/24/17 lamoTRIgine [LaMICtal] 200 mg PO DAILY 30 Days 02/24/17 traZODone HCL [Desyrel] 50 mg PO HS 30 Days 02/24/17 Docusate [Colace] 100 mg PO BID #60 capsule 06/21/17 Naproxen Sodium [Naprelan] 500 mg PO DAILY #30 tab 06/21/17 Allergies Allergy/AdvReac Type Severity Reaction Status Date / Time montelukast sodium Allergy Severe Swelling Verified 06/21/17 14:02 [From Singulair] codeine Allergy Rash/Hives/ Verified 06/21/17 14:02 Itching Review of Systems ROS Statement: Those systems with pertinent positive or pertinent negative responses have been documented in the HPI. ROS Other: All systems not noted in ROS Statement are negative. Constitutional: Denies: fever, chills Eyes: Denies: vision change ENT: Denies: ear pain, throat pain Respiratory: Denies: cough, dyspnea Cardiovascular: Denies: chest pain Endocrine: Denies: fatigue Gastrointestinal: Reports: abdominal pain, constipation. Denies: nausea, vomiting, diarrhea Genitourinary: Denies: dysuria Musculoskeletal: Denies: back pain Skin: Denies: lesions Neurological: Denies: headache Psychiatric: Reports: as per HPI Hematological/Lymphatic: Reports: as per HPI Past Medical History Past Medical History: COPD, Hyperlipidemia, Hypertension, Liver Disease, Thyroid Disorder Additional Past Medical History / Comment(s): hepatitis b and c (per pt: "not detectable). bipolar type II, borderline personality disorder History of Any Multi-Drug Resistant Organisms: None Reported Additional Past Surgical History / Comment(s): deviated septum repair, dental extractions Past Anesthesia/Blood Transfusion Reactions: No Reported Reaction, Family History of Problems w/ Anesthesia Additional Past Anesthesia/Blood Transfusion Reaction / Comment(s): Pt's. sisters b/p dropped while under anesthesia Past Psychological History: Anxiety, Bipolar, Depression Smoking Status: Current every day smoker Past Alcohol Use History: Occasional Past Drug Use History: None Reported - Past Family History Sister(s) Additional Family Medical History / Comment(s): He has one half sister with depression and possible borderline personality, severe COPD, irritable bowel syndrome, fibromyalgia. Brother(s) Additional Family Medical History / Comment(s): Patient has one brother with history of brain aneurysm with history of methamphetamine use. Patient does not have any children. Mother Family Medical History: COPD Additional Family Medical History / Comment(s): Other at age 54 due to an axonal drug overdose with history of coronary artery disease and Bipolar D.O. Father Family Medical History: Cancer, Coronary Artery Disease (CAD), Hypertension, Liver Disease, Myocardial Infarction (AR) Additional Family Medical History / Comment(s): Father at age 55 due to liver cancer secondary to hepatitis C but not alcohol related Five AR's General Exam Limitations: no limitations General appearance: alert, in no apparent distress Head exam: Present: atraumatic, normocephalic Eye exam: Present: normal appearance ENT exam: Present: normal exam Neck exam: Present: normal inspection Respiratory exam: Present: normal lung sounds bilaterally. Absent: respiratory distress, wheezes Cardiovascular Exam: Present: regular rate, normal rhythm, normal heart sounds GI/Abdominal exam: Present: soft, tenderness (Patient has periumbilical tenderness. There is an easily reducible hernia. Defect is felt within the umbilicus. There are no overlying skin changes.). Absent: distended Rectal exam: Present: deferred exam: Present: normal inspection, circumcision. Absent: testicular tenderness, urethral discharge, scrotal swelling Extremities exam: Present: normal inspection Back exam: Present: normal inspection Neurological exam: Present: alert, oriented X3, normal gait Psychiatric exam: Present: normal affect, normal mood Skin exam: Present: warm, dry, intact Course Vital Signs 06/21/17 14:00 Temperature 97.7 F Pulse Rate 78 Respiratory 18 Rate Blood Pressure 117/86 O2 Sat by Pulse 98 Oximetry Medical Decision Making - Medical Decision Making Patient presents with a chief complaint of abdominal pain. History and physical examination are consistent with an umbilical hernia. The hernia is easily reducible, and there are no overlying skin changes. On initial examination, vital signs are stable. I discussed findings with the patient stated that this is not an emergent issue that needs attention today. Patient is agreeable with referral to a general surgeon, and prescription for naproxen and Colace. At this time, all questions are answered. Patient is instructed to follow-up with his primary care physician, general surgery, and he was given explicit signs and symptoms that should prompt return to the emergency department. Disposition Clinical Impression: Umbilical hernia, Abdominal pain Disposition: HOME SELF-CARE Condition: Good Prescriptions: Docusate [Colace] 100 mg PO BID #60 capsule Naproxen Sodium [Naprelan] 500 mg PO DAILY #30 tab Referrals: Nick Drummond MD [Primary Care Provider] - 1-2 days Jared Garzon MD [STAFF PHYSICIAN] - 1-2 days
== END 2017-06-21 14:42 | disposition home or self-care (01) ==
LOC: EC 13:56
DX: K42.9 Umbilical hernia without obstruction or gangrene (principal); E07.9 Disorder of thyroid, unspecified; Z79.899 Other long term (current) drug therapy; F17.200 Nicotine dependence, unspecified, uncomplicated; Z88.5 Allergy status to narcotic agent; Z88.8 Allergy status to other drugs, medicaments and biological substances; Z98.890 Other specified postprocedural states; Z83.79 Family history of other diseases of the digestive system
CPT/HCPCS: 99283; 96372; J1885

== ENCOUNTER 2017-07-07 07:05 | Day surgery (SDC) | payer MEDICARE, OTHER ==
[2017-07-05 11:16] VITALS: BMI 26.2
[~2017-07-07 07:05] MED LIST: DEXAMETHASONE SOD PHOSPHATE 10 MG/ML 1 ML VIAL IV ONE; HEPARIN SODIUM,PORCINE 5,000 UNIT/ML 1 ML VIAL SQ ONE; LACTATED RINGERS 1,000 ML IV SCH; ONDANSETRON 4 MG/2 ML VIAL IVP ONE; ceFAZolin 2 GM in SODIUM CHLORIDE 0.9% 100 ML IVPB ONE
[2017-07-07] MEDS ORDERED: LIDOCAINE 1% 20 ML VIAL (10MG/ML) FOR IV START INTRADERMA ONE (07:50)
[2017-07-07] MEDS ORDERED: SCOPOLAMINE 1.5MG/72HR PATCH TRANSDERM ONE (08:00)
[2017-07-07] MEDS ORDERED: MIDAZOLAM 2 MG/2 ML VIAL IV ONE (08:43)
--- NOTE | 2017-07-07 09:27 | P.GSHP ---
History of Present Illness H&P Date: 07/07/17 Chief Complaint: Incarcerated umbilical hernia This is a 42-year-old male who presents today for laparoscopic robotic-assisted repair of incarcerated umbilical hernia. Past Medical History Past Medical History: COPD, Hyperlipidemia, Hypertension, Liver Disease, Thyroid Disorder Additional Past Medical History / Comment(s): hepatitis b and c (per pt: "not detectable). SEASONAL ALLERGIES, UMBILICAL HERNIA History of Any Multi-Drug Resistant Organisms: None Reported Additional Past Surgical History / Comment(s): deviated septum repair, dental extractions WISDOM TEETH UNDER ANESTHESIA Past Anesthesia/Blood Transfusion Reactions: No Reported Reaction, Family History of Problems w/ Anesthesia Additional Past Anesthesia/Blood Transfusion Reaction / Comment(s): Pt's. sisters b/p dropped while under anesthesia Past Psychological History: Anxiety, Bipolar, Depression, Panic Disorder Additional Psychological History / Comment(s): bipolar type II, borderline personality disorder Smoking Status: Current every day smoker Past Alcohol Use History: None Reported Additional Past Alcohol Use History / Comment(s): PT HAS SMOKED 1 PPD SINCE AGE 16 Past Drug Use History: None Reported Additional Drug Use History / Comment(s): PAST USE OF HERION (CLEAN FOR 7 YRS PER PT) PAST MARIJUANA USER-ALSO STATES DOES NOT USE ANYMORE - Past Family History Sister(s) Additional Family Medical History / Comment(s): He has one half sister with depression and possible borderline personality, severe COPD, irritable bowel syndrome, fibromyalgia. Brother(s) Additional Family Medical History / Comment(s): Patient has one brother with history of brain aneurysm with history of methamphetamine use. Patient does not have any children. Mother Family Medical History: COPD Additional Family Medical History / Comment(s): Other at age 54 due to an axonal drug overdose with history of coronary artery disease and Bipolar D.O. Father Family Medical History: Cancer, Coronary Artery Disease (CAD), Hypertension, Liver Disease, Myocardial Infarction (OR) Additional Family Medical History / Comment(s): Father at age 55 due to liver cancer secondary to hepatitis C but not alcohol related Five OR's Medications and Allergies Home Medications Medication Instructions Recorded Confirmed Type Fluticasone Nasal [place] [Flonase 1 - 2 spray EA NOSTRIL QAM PRN 02/11/16 History Nasal [place]] buPROPion XL [Wellbutrin XL] 150 mg PO DAILY #30 tab.er.24h 02/14/16 07/05/17 Rx Levothyroxine Sodium [Synthroid] 50 mcg PO QAM 07/13/16 07/05/17 History Propranolol HCl [Inderal] 60 mg PO DAILY #0 02/24/17 07/05/17 Rx Tiotropium 18 Mcg/Puff [Spiriva] 1 cap INHALATION RT-DAILY 30 Days 02/24/1709/10 Rx ARIPiprazole [Abilify] 30 mg PO HS 06/21/17 07/05/17 History Docusate [Colace] 100 mg PO BID #60 capsule 06/21/17 07/05/17 Rx Naproxen Sodium [Naprelan] 500 mg PO DAILY #30 tab 06/21/17 07/05/17 Rx lamoTRIgine [LaMICtal] 150 mg PO DAILY 06/21/17 07/05/17 History hydrOXYzine PAMOATE [Vistaril] 50 mg PO DAILY PRN 07/05/17 07/05/17 History Allergies Allergy/AdvReac Type Severity Reaction Status Date / Time montelukast sodium Allergy Severe Swelling Verified 07/05/17 11:08 [From [facility]] codeine Allergy Rash/Hives/ Verified 07/05/17 11:08 Itching Surgical - Exam Vital Signs Temp Pulse Resp BP Pulse Ox 97.7 F 68 18 120/82 97 07/07/17 08:30 07/07/17 08:30 07/07/17 08:30 07/07/17 08:30 07/07/17 08:30 - General well developed, no distress - Eyes PERRL - ENT normal pinna - Neck no masses - Respiratory normal expansion - Cardiovascular Rhythm: regular - Abdomen Abdomen: soft, non tender Hernia: umbilical (3 cm incarcerated umbilical hernia) Assessment and Plan Plan: Incarcerated umbilical hernia. We'll perform laparoscopic robotic-assisted repair.
[2017-07-07] MEDS ORDERED: LIDOCAINE 2%-EPI 1:100,000 20 ML VIAL SQ ONE ×3 (09:35→10:56)
[2017-07-07] MEDS ORDERED: BUPIVACAINE (PF) 0.25% 30 ML VIAL SQ ONE ×3 (09:35→10:56)
[2017-07-07] MEDS ORDERED: SUCCINYLCHOLINE CHLORIDE 100 MG/5 ML SYR IV ONE (10:12)
[2017-07-07] MEDS ORDERED: ROCURONIUM BROMIDE 10 MG/ML 10 ML VIAL IV ONE (10:12)
[2017-07-07] MEDS ORDERED: GLYCOPYRROLATE 0.2 MG/ML 2 ML VIAL ONE (10:12)
[2017-07-07] MEDS ORDERED: NEOSTIGMINE 1 MG/ML 10 ML VIAL ONE (10:12)
[2017-07-07] MEDS ORDERED: KETOROLAC 30 MG/ML 1 ML VIAL ONE (10:12)
[2017-07-07] MEDS ORDERED: fentaNYL (PF) 50 MCG/ML 2 ML AMP ONE (10:12)
[2017-07-07] MEDS ORDERED: PROPOFOL 10 MG/ML 20 ML VIAL IV ONE (10:12)
[2017-07-07] MEDS ORDERED: MIDAZOLAM 2 MG/2 ML VIAL ONE (10:12)
--- NOTE | 2017-07-07 11:35 | P.OP ---
Date of Procedure: 07/07/17 Preoperative Diagnosis: Incarcerated umbilical hernia Postoperative Diagnosis: Incarcerated umbilical hernia Procedure(s) Performed: Laparoscopic robotic system repair of incarcerated umbilical hernia Anesthesia: ESAU Surgeon: Jared Garzon Estimated Blood Loss (ml): 5 Pathology: none sent Condition: stable Disposition: PACU Description of Procedure: The patient's placed on the operating table in supine position. He received general anesthesia. His abdomen was prepped and draped in sterile fashion. The skin was incised left upper quadrant. And then using a 5 mm optical trocar under direct visualization the pleural cavity is entered. The abdomen was insufflated and then after adequate insufflation. The laparoscope size back. Cavity. Next a 8 mm robotic trochars placed the left lower quadrant and a 12 mm robotic trochars placed in the left lateral position. The original 5 ohmmeter trocar was exchanged for a 8 mm robotic trocar. The patient's placed left side up position and then the patient was docked the robot. The patient incarcerated umbilical hernia. The incarcerated greater omentum was reduced using hook cautery. Once the omentum was reduced. The fascial defect was closed with oh the lock suture. Then a 11 cm round ventral light ST mesh was secured with 2 OV lock suture. The patient was undocked the robot. The needles were retrieved. The incarcerated fat was withdrawn. The 12 mm trocar site was closed with 0 Ethibond suture. The remaining trochars were withdrawn. Skin was closed interrupted 3-0 Monocryl suture. Dermabond was applied. Patient sent recovered recovery room in stable condition.
[2017-07-07 11:49] VITALS: TEMP 97.4
[2017-07-07] MEDS: HYDROmorphone 1 MG/ML 1 ML SYRINGE IVP PRN ×2 (11:54→12:01)
[2017-07-07] MEDS ORDERED: HYDROcodone/APAP 7.5-325MG 1 EACH TAB PO ONE (13:25)
[2017-07-07 13:42] VITALS: RESP 16
[2017-07-07 14:23] VITALS: BP 130/87; PULSE 80
== END 2017-07-07 15:52 | disposition home or self-care (01) ==
LOC: OR 07:05
PROVIDERS: ATTEND Surgery
DX: K42.0 Umbilical hernia with obstruction, without gangrene (principal); F17.200 Nicotine dependence, unspecified, uncomplicated; F31.81 Bipolar II disorder; I10 Essential (primary) hypertension; J44.9 Chronic obstructive pulmonary disease, unspecified; F60.3 Borderline personality disorder; F41.9 Anxiety disorder, unspecified; E78.5 Hyperlipidemia, unspecified; E07.9 Disorder of thyroid, unspecified; K76.9 Liver disease, unspecified; Z88.5 Allergy status to narcotic agent; Z88.8 Allergy status to other drugs, medicaments and biological substances; Z79.899 Other long term (current) drug therapy; Z82.49 Family history of ischemic heart disease and other diseases of the circulatory system
CPT/HCPCS: 49653; C1781; J2250; J1644; J1100; J2710; J0690; J2405; J3010; J1885; J1170; J0330; J2704

== ENCOUNTER 2017-09-17 10:59 | Emergency (ER) | payer MEDICARE, OTHER ==
[2017-09-17 11:31] VITALS: RESP 16
[2017-09-17] MEDS ORDERED: KETOROLAC 60 MG/2 ML VIAL IM STA (11:38)
--- NOTE | 2017-09-17 11:40 | ED ---
General Adult HPI - General Chief complaint: Extremity Problem,Nontraumatic Stated complaint: right hip pain Time Seen by Provider: 09/17/17 11:32 Source: patient, RN notes reviewed Mode of arrival: wheelchair Limitations: no limitations - History of Present Illness Initial comments: Patient 42-year-old male who presents emergency room today with a chief complaint of pain to the right hip. Denies any injury or trauma. Does not that last night while he was in bed and felt like it locked up. Patient does admit that it's worse with certain movements of flexion and extension at the right hip area. Patient does admit to a history of arthritis. States he does have some chronic neck problems. Patient denies any radicular pain. Denies any saddle she's. Denies any gallbladder countenance retention. Denies any other complaints. States tried Tylenol for pain with little relief. Patient denies any recent fever, chills, shortness of breath, chest pain, back pain, abdominal pain, nausea or vomiting, numbness or tingling, dysuria or hematuria, constipation or diarrhea, headaches or visual changes, or any other complaints. - Related Data Home Medications Medication Instructions Recorded Confirmed Fluticasone Nasal [place] [Flonase 1 - 2 spray EA NOSTRIL QAM PRN 02/11/16 Nasal [place]] Levothyroxine Sodium [Synthroid] 50 mcg PO QAM 07/13/16 09/17/17 ARIPiprazole [Abilify] 30 mg PO HS 06/21/17 09/17/17 lamoTRIgine [LaMICtal] 150 mg PO HS 06/21/17 09/17/17 hydrOXYzine PAMOATE [Vistaril] 50 mg PO DAILY PRN 07/05/17 09/17/17 Propranolol [Inderal] 40 mg PO HS 09/17/17 09/17/17 Previous Rx's Medication Instructions Recorded buPROPion XL [Wellbutrin XL] 150 mg PO DAILY #30 tab.er.24h 02/14/16 Propranolol HCl [Inderal] 60 mg PO DAILY #0 02/24/17 Cyclobenzaprine [Flexeril] 10 mg PO TID #20 tab 09/17/17 Ibuprofen [Motrin] 800 mg PO Q6HR #30 tab 09/17/17 Allergies Allergy/AdvReac Type Severity Reaction Status Date / Time montelukast sodium Allergy Severe Swelling Verified 09/17/17 12:04 [From Singulair] codeine Allergy Rash/Hives/ Verified 09/17/17 12:04 Itching Review of Systems ROS Statement: Those systems with pertinent positive or pertinent negative responses have been documented in the HPI. ROS Other: All systems not noted in ROS Statement are negative. Past Medical History Past Medical History: COPD, Hyperlipidemia, Hypertension, Liver Disease, Thyroid Disorder Additional Past Medical History / Comment(s): hepatitis b and c (per pt: "not detectable). SEASONAL ALLERGIES, UMBILICAL HERNIA History of Any Multi-Drug Resistant Organisms: None Reported Past Surgical History: Hernia Repair Additional Past Surgical History / Comment(s): deviated septum repair, dental extractions WISDOM TEETH UNDER ANESTHESIA Past Anesthesia/Blood Transfusion Reactions: No Reported Reaction, Family History of Problems w/ Anesthesia Additional Past Anesthesia/Blood Transfusion Reaction / Comment(s): Pt's. sisters b/p dropped while under anesthesia Past Psychological History: Anxiety, Bipolar, Depression, Panic Disorder Smoking Status: Current some day smoker Past Alcohol Use History: None Reported Past Drug Use History: None Reported - Past Family History Sister(s) Additional Family Medical History / Comment(s): He has one half sister with depression and possible borderline personality, severe COPD, irritable bowel syndrome, fibromyalgia. Brother(s) Additional Family Medical History / Comment(s): Patient has one brother with history of brain aneurysm with history of methamphetamine use. Patient does not have any children. Mother Family Medical History: COPD Additional Family Medical History / Comment(s): Other at age 54 due to an axonal drug overdose with history of coronary artery disease and Bipolar D.O. Father Family Medical History: Cancer, Coronary Artery Disease (CAD), Hypertension, Liver Disease, Myocardial Infarction ([place]) Additional Family Medical History / Comment(s): Father at age 55 due to liver cancer secondary to hepatitis C but not alcohol related Five [place]'s General Exam - General Exam Comments Initial Comments: General: The patient is awake and alert, in no distress, and does not appear acutely ill. Neck: The neck is supple, there is no tenderness or JVD. Cardiovascular: There is a regular rate and rhythm. No murmur, rub or gallop is appreciated. Respiratory: Lungs are clear to auscultation, respirations are non-labored, breath sounds are equal. No wheezes, stridor, rales, or rhonchi. Musculoskeletal: Patient does have a normal appearance of the right hip. There is no swelling bruising or redness. Patient tender on palpation to the lateral aspect. Tender with a logroll maneuver. Sensations are intact pulses equal bilaterally 2+. Strength is 5/5. Neurological: A&O x 3. CN II-XII intact, There are no obvious motor or sensory deficits. Coordination appears grossly intact. Speech is normal. Skin: Skin is warm and dry and no rashes or lesions are noted. Psychiatric: Normal mood and affect. Limitations: no limitations Course Vital Signs 09/17/17 11:28 Temperature 97.7 F Pulse Rate 71 Respiratory 16 Rate Blood Pressure 137/94 O2 Sat by Pulse 98 Oximetry Medical Decision Making - Medical Decision Making Patient reexamined at this time shows sinus of distress. Patient's x-rays are unremarkable. Patient will continue anti-inflammatories and muscle laxer for symptoms advised follow-up orthopedics. Disposition Clinical Impression: Hip pain, right Disposition: HOME SELF-CARE Condition: Good Instructions: Hip Pain (ED) Additional Instructions: Please use medication as discussed. Please follow-up with orthopedic/family doctor in the next 2 days of symptoms have not improved. Please return to emergency room if the symptoms increase or worsen or for any other concerns. Prescriptions: Cyclobenzaprine [Flexeril] 10 mg PO TID #20 tab Ibuprofen [Motrin] 800 mg PO Q6HR #30 tab Referrals: Nick Drummond MD [Primary Care Provider] - 1-2 days Murali Oliver MD [STAFF PHYSICIAN] - 1-2 days Time of Disposition: 12:55
--- NOTE | 2017-09-17 12:13 | XR ---
EXAMINATION TYPE: AP view pelvis and 2 views right hip DATE OF EXAM: 09/17/2017 COMPARISON: NONE HISTORY: 42-year-old male right hip pain for a few days FINDINGS: SI joints appear symmetric and intact as does the pubic symphysis. Small delineation to the arcuate l gabriella of the sacrum. Hip joint space is relatively maintained. No acute fracture, subluxation, or disl ocation seen. Phleboliths in the pelvis. IMPRESSION: No acute osseous abnormality seen.
[2017-09-17 13:32] VITALS: BP 122/83; PULSE 65; TEMP 97.8
== END 2017-09-17 13:40 | disposition home or self-care (01) ==
LOC: EC 10:59
DX: M25.551 Pain in right hip (principal); E07.9 Disorder of thyroid, unspecified; I10 Essential (primary) hypertension; F31.9 Bipolar disorder, unspecified; F41.9 Anxiety disorder, unspecified; F17.200 Nicotine dependence, unspecified, uncomplicated; Z86.19 Personal history of other infectious and parasitic diseases; Z88.5 Allergy status to narcotic agent; Z88.8 Allergy status to other drugs, medicaments and biological substances; Z79.899 Other long term (current) drug therapy
CPT/HCPCS: 73502; 99283; 96372; J1885

== ENCOUNTER 2018-05-20 01:36 | Emergency (ER) | payer MEDICARE, OTHER ==
--- NOTE | 2018-05-20 02:16 | ED ---
Psych HPI - General Chief Complaint: Psychiatric Symptoms Stated Complaint: mental health Time Seen by Provider: 05/20/18 01:48 Source: patient Mode of arrival: ambulatory - History of Present Illness Initial Comments: 42-year-old male patient presents to the emergency department today for complaints of increased irritability, anxiety, and depression. Patient states that he has been dealing with an increase in his symptoms over the last several weeks. States that he is taking his medications as directed however he feels like they're not helping any longer. He states that tonight his irritability level increased and he felt like he was going to "lose control". He felt like he was going to break things and cause damage. He denies any alcohol or drug use. States that he is sleeping 16-17 hours per day. States that his appetite has been poor. He should states he did have suicidal thoughts a few days ago however has had none today. He denies any homicidal ideation. He denies any hallucinations. Patient denies any recent rash, fever, chills, shortness breath , chest pain, abdominal pain, nausea, vomiting, diarrhea, constipation, back pain, numbness, tingling, dizziness, weakness, hematuria, dysuria, urinary urgency, urinary frequency, headache, visual changes, or any other complaints. - Related Data Home Medications Medication Instructions Recorded Confirmed Fluticasone Nasal [place] [Flonase 1 - 2 spray EA NOSTRIL QAM PRN 02/11/16 Nasal [place]] Levothyroxine Sodium [Synthroid] 50 mcg PO QAM 07/13/16 09/17/17 ARIPiprazole [Abilify] 30 mg PO HS 06/21/17 09/17/17 lamoTRIgine [LaMICtal] 150 mg PO HS 06/21/17 09/17/17 hydrOXYzine PAMOATE [Vistaril] 50 mg PO DAILY PRN 07/05/17 09/17/17 Propranolol [Inderal] 40 mg PO HS 09/17/17 09/17/17 Previous Rx's Medication Instructions Recorded buPROPion XL [Wellbutrin XL] 150 mg PO DAILY #30 tab.er.24h 02/14/16 Propranolol HCl [Inderal] 60 mg PO DAILY #0 02/24/17 Cyclobenzaprine [Flexeril] 10 mg PO TID #20 tab 09/17/17 Ibuprofen [Motrin] 800 mg PO Q6HR #30 tab 09/17/17 Allergies Allergy/AdvReac Type Severity Reaction Status Date / Time montelukast sodium Allergy Severe Swelling Verified 05/20/18 01:45 [From [place]] codeine Allergy Rash/Hives/ Verified 05/20/18 01:45 Itching Review of Systems ROS Statement: Those systems with pertinent positive or pertinent negative responses have been documented in the HPI. ROS Other: All systems not noted in ROS Statement are negative. Past Medical History Past Medical History: COPD, Hyperlipidemia, Hypertension, Liver Disease, Thyroid Disorder Additional Past Medical History / Comment(s): hepatitis b and c (per pt: "not detectable). SEASONAL ALLERGIES, UMBILICAL HERNIA History of Any Multi-Drug Resistant Organisms: None Reported Past Surgical History: Hernia Repair Additional Past Surgical History / Comment(s): deviated septum repair, dental extractions WISDOM TEETH UNDER ANESTHESIA Past Anesthesia/Blood Transfusion Reactions: No Reported Reaction, Family History of Problems w/ Anesthesia Additional Past Anesthesia/Blood Transfusion Reaction / Comment(s): Pt's. sisters b/p dropped while under anesthesia Past Psychological History: Anxiety, Bipolar, Depression, Panic Disorder Smoking Status: Current some day smoker Past Alcohol Use History: Rare Past Drug Use History: None Reported - Past Family History Sister(s) Additional Family Medical History / Comment(s): He has one half sister with depression and possible borderline personality, severe COPD, irritable bowel syndrome, fibromyalgia. Brother(s) Additional Family Medical History / Comment(s): Patient has one brother with history of brain aneurysm with history of methamphetamine use. Patient does not have any children. Mother Family Medical History: COPD Additional Family Medical History / Comment(s): Other at age 54 due to an axonal drug overdose with history of coronary artery disease and Bipolar D.O. Father Family Medical History: Cancer, Coronary Artery Disease (CAD), Hypertension, Liver Disease, Myocardial Infarction ([place]) Additional Family Medical History / Comment(s): Father at age 55 due to liver cancer secondary to hepatitis C but not alcohol related Five TX's General Exam Limitations: no limitations General appearance: alert, in no apparent distress, other (This well-developed, well-nourished adult male patient in no acute distress. Vital signs upon presentation are temperature 98.1F, pulse 66, respirations 19, blood pressure 155/104, pulse ox 99% on room air.) Eye exam: Present: normal appearance, PERRL, EOMI. Absent: scleral icterus, conjunctival injection, periorbital swelling ENT exam: Present: normal exam, normal oropharynx, mucous membranes moist Respiratory exam: Present: normal lung sounds bilaterally. Absent: respiratory distress, wheezes, rales, rhonchi, stridor Cardiovascular Exam: Present: regular rate, normal rhythm, normal heart sounds. Absent: systolic murmur, diastolic murmur, rubs, gallop, clicks GI/Abdominal exam: Present: soft, normal bowel sounds. Absent: distended, tenderness, guarding, rebound, rigid Neurological exam: Present: alert, oriented X3, CN II-XII intact Psychiatric exam: Present: normal affect, normal mood Skin exam: Present: warm, dry, intact, normal color. Absent: rash Course Vital Signs 05/20/18 01:40 Temperature 98.1 F Pulse Rate 66 Respiratory 19 Rate Blood Pressure 155/104 O2 Sat by Pulse 99 Oximetry Medical Decision Making - Medical Decision Making 42 year-old male patient presented to the emergency department for evaluation of worsening anxiety and depression. Physical examination unremarkable. He was cleared medically for EPS assessment. Patient did not meet inpatient criteria and has good outpatient follow up in place. He will be discharged home. He feels comfortable following up outpatient. Return parameters were discussed in detail. He verbalizes understanding and agrees with this plan. Disposition Clinical Impression: Anxiety, Depression Disposition: HOME SELF-CARE Condition: Good Instructions: Depression (ED), Anxiety (ED) Additional Instructions: Follow up outpatient for mental health services as directed. Return here immediately for any new, worsening, or concerning symptoms. Is patient prescribed a controlled substance at d/c from ED?: No Referrals: Nick Drummond MD [Primary Care Provider] - 1-2 days Time of Disposition: 03:46
[2018-05-20 04:10] VITALS: BP 128/79; PULSE 73; RESP 16; TEMP 97.1
== END 2018-05-20 04:09 | disposition home or self-care (01) ==
LOC: EC 01:36
DX: F31.30 Bipolar disorder, current episode depressed, mild or moderate severity, unspecified (principal); F41.9 Anxiety disorder, unspecified; J44.9 Chronic obstructive pulmonary disease, unspecified; I10 Essential (primary) hypertension; E07.9 Disorder of thyroid, unspecified; F17.200 Nicotine dependence, unspecified, uncomplicated; Z79.899 Other long term (current) drug therapy; Z88.5 Allergy status to narcotic agent; Z88.8 Allergy status to other drugs, medicaments and biological substances; Z81.8 Family history of other mental and behavioral disorders
CPT/HCPCS: 99284

== ENCOUNTER 2018-05-23 11:47 | Emergency (ER) | payer MEDICARE, OTHER ==
[2018-05-23 11:58] VITALS: BP 129/90; PULSE 61; RESP 18; TEMP 97.8
--- NOTE | 2018-05-23 12:09 | ED ---
Psych HPI - General Chief Complaint: Psychiatric Symptoms Stated Complaint: Mental Health Time Seen by Provider: 05/23/18 11:58 Source: patient Mode of arrival: ambulatory - History of Present Illness Initial Comments: 42 years old male with a history of depression and anxiety has been receiving a doctor or nurse practitioner named Dr. Gutierrez now he is not able to see him a patient is not sure if is a nurse practitioner or a physician because of his insurance changed though he still has his medications and has been compliant with his medications he stated he feels his depression is worse so his his anxiety he has been now thinking about harming himself or his has a history of for self-harm in the past. He denies any alcohol or drugs onboard at this time him a does admit to suicidal ideation but no homicidal ideation - Related Data Home Medications Medication Instructions Recorded Confirmed Levothyroxine Sodium [Synthroid] 50 mcg PO DAILY@0500 07/13/16 05/23/18 ARIPiprazole [Abilify] 30 mg PO HS 06/21/17 05/23/18 lamoTRIgine [LaMICtal] 150 mg PO HS 06/21/17 05/23/18 Propranolol [Inderal] 40 mg PO DAILY 09/17/17 05/23/18 Calcium Carbonate [Tums] 500 - 1,000 mg PO QID PRN 05/23/18 05/23/18 Omeprazole 20 mg PO HS 05/23/18 05/23/18 Psyllium Husk [Metamucil] 0.4 gm PO DAILY 05/23/18 05/23/18 Tiotropium 18 Mcg/Puff [Spiriva] 1 cap INHALATION RT-DAILY 05/23/18 05/23/18 Previous Rx's Medication Instructions Recorded buPROPion XL [Wellbutrin XL] 150 mg PO DAILY #30 tab.er.24h 02/14/16 Allergies Allergy/AdvReac Type Severity Reaction Status Date / Time montelukast sodium Allergy Severe Swelling Verified 05/23/18 13:04 [From [place]] codeine Allergy Rash/Hives/ Verified 05/23/18 13:04 Itching Review of Systems ROS Statement: Those systems with pertinent positive or pertinent negative responses have been documented in the HPI. ROS Other: All systems not noted in ROS Statement are negative. Past Medical History Past Medical History: COPD, Hyperlipidemia, Hypertension, Liver Disease, Thyroid Disorder Additional Past Medical History / Comment(s): hepatitis b and c (per pt: "not detectable). SEASONAL ALLERGIES, UMBILICAL HERNIA History of Any Multi-Drug Resistant Organisms: None Reported Past Surgical History: Hernia Repair Additional Past Surgical History / Comment(s): deviated septum repair, dental extractions WISDOM TEETH UNDER ANESTHESIA Past Anesthesia/Blood Transfusion Reactions: No Reported Reaction, Family History of Problems w/ Anesthesia Additional Past Anesthesia/Blood Transfusion Reaction / Comment(s): Pt's. sisters b/p dropped while under anesthesia Past Psychological History: Anxiety, Bipolar, Depression, Panic Disorder Smoking Status: Current some day smoker Past Alcohol Use History: Rare Past Drug Use History: None Reported - Past Family History Sister(s) Additional Family Medical History / Comment(s): He has one half sister with depression and possible borderline personality, severe COPD, irritable bowel syndrome, fibromyalgia. Brother(s) Additional Family Medical History / Comment(s): Patient has one brother with history of brain aneurysm with history of methamphetamine use. Patient does not have any children. Mother Family Medical History: COPD Additional Family Medical History / Comment(s): Other at age 54 due to an axonal drug overdose with history of coronary artery disease and Bipolar D.O. Father Family Medical History: Cancer, Coronary Artery Disease (CAD), Hypertension, Liver Disease, Myocardial Infarction ([place]) Additional Family Medical History / Comment(s): Father at age 55 due to liver cancer secondary to hepatitis C but not alcohol related Five [place]'s General Exam - General Exam Comments Initial Comments: General: The patient is awake and alert, in no distress, and does not appear acutely ill. GCS is 15 Skin: Skin is warm and dry and no rashes or lesions are noted. Eye: Pupils are equal, round and reactive to light, extra-ocular movements are intact; there is normal conjunctiva bilaterally. Ears, nose, mouth and throat: There are moist mucous membranes and no oral lesions. Neck: The neck is supple, there is no tenderness or JVD. Cardiovascular: There is a regular rate and rhythm. No murmur, rub or gallop is appreciated. Respiratory: To auscultation bilateral, no wheezing no rhonchi no distress respiratory gregorio noticed Gastrointestinal: Soft, non-distended, non-tender abdomen without masses or organomegaly noted. There is no rebound or guarding present. Bowel sounds are unremarkable. Back: There is no tenderness to palpation in the midline. There is no obvious deformity. Musculoskeletal: Normal ROM, no tenderness, There is no pedal edema. There is no calf tenderness or swelling. No cords were appreciated. Neurological: CN II-XII intact, Cranial nerves III through XII are intact. There are no obvious motor or sensory deficits. Coordination appears grossly intact. Speech is normal. Psychiatric: Cooperative, appropriate mood & affect, normal judgment. He admits to suicidal ideation, no plan in place at this point he does have a history of self-harm noticed multiple healed scars on his forearm Limitations: no limitations Course Vital Signs 05/23/18 11:53 Temperature 97.8 F Pulse Rate 61 Respiratory 18 Rate Blood Pressure 129/90 O2 Sat by Pulse 98 Oximetry He seems not intoxicated he is cleared for EPS to evaluate him. Patient was evaluated by EPS EPS assessed him and now they informed me around the that he is critical home he is can follow-up according to EPS directions Medical Decision Making - Lab Data Lab Results 05/23/18 Range/Units 12:26 Urine Opiates Screen Not Detected (NotDetected) Ur Oxycodone Screen Not Detected (NotDetected) Urine Methadone Screen Not Detected (NotDetected) Ur Propoxyphene Screen Not Detected (NotDetected) Ur Barbiturates Screen Not Detected (NotDetected) U Tricyclic Antidepress Not Detected (NotDetected) Ur Phencyclidine Scrn Not Detected (NotDetected) Ur Amphetamines Screen Not Detected (NotDetected) U Methamphetamines Scrn Not Detected (NotDetected) U Benzodiazepines Scrn Not Detected (NotDetected) Urine Cocaine Screen Not Detected (NotDetected) U Marijuana (THC) Screen Detected H (NotDetected) Disposition Clinical Impression: Depression Disposition: HOME SELF-CARE Condition: Good Instructions: Depression (ED) Is patient prescribed a controlled substance at d/c from ED?: No Referrals: Nick Drummond MD [Primary Care Provider] - 1-2 days
[2018-05-23 13:07] LABS: Amphetamine Screen,Urine Not Detected (NotDetected); Barbiturate Screen,Urine Not Detected (NotDetected); Benzodiazepines Screen,Urine Not Detected (NotDetected); Cocaine Screen,Urine Not Detected (NotDetected); Methadone Screen, Urine Not Detected (NotDetected); Opiate Screen,Urine Not Detected (NotDetected); Oxycodone Screen, Urine Not Detected (NotDetected); Phencyclidine Screen,Urine Not Detected (NotDetected); Tricyclic Antidepressant,Urine Not Detected (NotDetected); Urn Cannabinoid Scrn Detected (NotDetected)
[2018-05-23] MEDS ORDERED: LORazepam 1 MG TAB PO STA (16:07)
== END 2018-05-23 16:16 | disposition home or self-care (01) ==
LOC: EC 11:47
DX: F31.9 Bipolar disorder, unspecified (principal); R45.851 Suicidal ideations; J44.9 Chronic obstructive pulmonary disease, unspecified; I10 Essential (primary) hypertension; E07.9 Disorder of thyroid, unspecified; F41.0 Panic disorder [episodic paroxysmal anxiety]; F17.200 Nicotine dependence, unspecified, uncomplicated; Z79.899 Other long term (current) drug therapy; Z88.5 Allergy status to narcotic agent; Z88.8 Allergy status to other drugs, medicaments and biological substances
CPT/HCPCS: 80306; 82075; 99284

== ENCOUNTER 2018-12-03 11:44 | Emergency (ER) | payer MEDICARE, OTHER ==
[2018-12-03 11:53] VITALS: BP 145/92; PULSE 73; RESP 18; TEMP 97.4
--- NOTE | 2018-12-03 13:07 | ED ---
General Adult HPI - General Chief complaint: Anxiety Stated complaint: PANIC ATTACK, PSYCH Time Seen by Provider: 12/03/18 11:50 Source: patient, RN notes reviewed Mode of arrival: ambulatory Limitations: no limitations - History of Present Illness Initial comments: This is a 43-year-old male who has past medical history significant for anxiety. Patient states she normally takes Ativan 0.5 mg once a day but because been recent insurance change he was unable to get his medications from the office because he could not be seen in the office. Patient states his anxiety is been getting worse over the last few days and he comes in to get a few Ativan until he can figure out his insurance issue. Patient denies any physical complaints today. Patient denies chest pain difficulty breathing shortness of breath. Patient denies abdominal pain patient denies nausea vomiting diarrhea. Patient denies any recent fever chills or cough. - Related Data Home Medications Medication Instructions Recorded Confirmed Levothyroxine Sodium [Synthroid] 50 mcg PO DAILY@0500 07/13/16 05/23/18 ARIPiprazole [Abilify] 30 mg PO HS 06/21/17 05/23/18 lamoTRIgine [LaMICtal] 150 mg PO HS 06/21/17 05/23/18 Propranolol [Inderal] 40 mg PO DAILY 09/17/17 05/23/18 Omeprazole 20 mg PO HS 05/23/18 05/23/18 Tiotropium 18 Mcg/Puff [Spiriva] 1 cap INHALATION RT-DAILY 05/23/18 05/23/18 Bimatoprost [Lumigan .01% Ophth 1 drop BOTH EYES HS 12/03/18 12/03/18 Soln] LORazepam [Ativan] 0.5 mg PO DAILY 12/03/18 12/03/18 Previous Rx's Medication Instructions Recorded buPROPion XL [Wellbutrin XL] 150 mg PO DAILY #30 tab.er.24h 02/14/16 LORazepam [Ativan] 0.5 mg PO DAILY 3 Days #7 tab 12/03/18 Allergies Allergy/AdvReac Type Severity Reaction Status Date / Time montelukast sodium Allergy Severe Swelling Verified 12/03/18 12:31 [From [facility]] codeine Allergy Rash/Hives/ Verified 12/03/18 12:31 Itching Review of Systems ROS Statement: Those systems with pertinent positive or pertinent negative responses have been documented in the HPI. ROS Other: All systems not noted in ROS Statement are negative. Past Medical History Past Medical History: COPD, Hyperlipidemia, Hypertension, Liver Disease, Thyroid Disorder Additional Past Medical History / Comment(s): hepatitis b and c (per pt: "not detectable). SEASONAL ALLERGIES, UMBILICAL HERNIA, History of Any Multi-Drug Resistant Organisms: None Reported Past Surgical History: Hernia Repair Additional Past Surgical History / Comment(s): deviated septum repair, dental extractions WISDOM TEETH UNDER ANESTHESIA Past Anesthesia/Blood Transfusion Reactions: No Reported Reaction, Family History of Problems w/ Anesthesia Additional Past Anesthesia/Blood Transfusion Reaction / Comment(s): Pt's. sisters b/p dropped while under anesthesia Past Psychological History: Anxiety, Bipolar, Depression, Panic Disorder Smoking Status: Current some day smoker Past Alcohol Use History: Rare Past Drug Use History: None Reported - Past Family History Sister(s) Additional Family Medical History / Comment(s): He has one half sister with depression and possible borderline personality, severe COPD, irritable bowel syndrome, fibromyalgia. Brother(s) Additional Family Medical History / Comment(s): Patient has one brother with history of brain aneurysm with history of methamphetamine use. Patient does not have any children. Mother Family Medical History: COPD Additional Family Medical History / Comment(s): Other at age 54 due to an axonal drug overdose with history of coronary artery disease and Bipolar D.O. Father Family Medical History: Cancer, Coronary Artery Disease (CAD), Hypertension, Liver Disease, Myocardial Infarction ([place]) Additional Family Medical History / Comment(s): Father at age 55 due to liver cancer secondary to hepatitis C but not alcohol related Five [place]'s General Exam - General Exam Comments Initial Comments: GENERAL: Patient is well-developed and well-nourished. Patient is nontoxic and well- hydrated and is in mild distress. ENT: Neck is soft and supple. No significant lymphadenopathy is noted. Oropharynx is clear. Moist mucous membranes. Neck has full range of motion without eliciting any pain. EYES: The sclera were anicteric and conjunctiva were pink and moist. Extraocular movements were intact and pupils were equal round and reactive to light. Eyelids were unremarkable. PULMONARY: Unlabored respirations. Good breath sounds bilaterally. No audible rales rhonchi or wheezing was noted. CARDIOVASCULAR: There is a regular rate and rhythm without any murmurs gallops or rubs. ABDOMEN: Soft and nontender with normal bowel sounds. No palpable organomegaly was noted. There is no palpable pulsatile mass. SKIN: Skin is clear with no lesions or rashes and otherwise unremarkable. NEUROLOGIC: Patient is alert and oriented x3. Cranial nerves II through XII are grossly intact. Motor and sensory are also intact. Normal speech, volume and content. MUSCULOSKELETAL: Normal extremities with adequate strength and full range of motion. LYMPHATICS: No significant lymphadenopathy is noted PSYCHIATRIC: Patient is mildly anxious Limitations: no limitations Course Vital Signs 12/03/18 11:48 Temperature 97.4 F L Pulse Rate 73 Respiratory 18 Rate Blood Pressure 145/92 O2 Sat by Pulse 98 Oximetry Disposition Clinical Impression: Medication refill, Anxiety Disposition: HOME SELF-CARE Condition: Good Instructions (If sedation given, give patient instructions): Generalized Anxiety Disorder (ED) Prescriptions: LORazepam [Ativan] 0.5 mg PO DAILY 3 Days #7 tab Is patient prescribed a controlled substance at d/c from ED?: Yes When asked, does pt state using other controlled substances?: Yes If prescribed controlled substance>3 days was MAPS reviewed?: No Referrals: Nick Drummond MD [Primary Care Provider] - 1-2 days Time of Disposition: 13:10
== END 2018-12-03 13:15 | disposition home or self-care (01) ==
LOC: EC 11:44
DX: F41.9 Anxiety disorder, unspecified (principal); Z76.0 Encounter for issue of repeat prescription; I10 Essential (primary) hypertension; J44.9 Chronic obstructive pulmonary disease, unspecified; E07.9 Disorder of thyroid, unspecified; F31.9 Bipolar disorder, unspecified; F17.200 Nicotine dependence, unspecified, uncomplicated; Z88.5 Allergy status to narcotic agent; Z88.8 Allergy status to other drugs, medicaments and biological substances; Z79.890 Hormone replacement therapy; Z79.899 Other long term (current) drug therapy; Z81.8 Family history of other mental and behavioral disorders
CPT/HCPCS: 99283

== ENCOUNTER 2019-04-30 09:52 | Emergency (ER) | payer MEDICARE, OTHER ==
[2019-04-30] MEDS ORDERED: SODIUM CHLORIDE 0.9% 1,000 ML IV STA (10:29)
[2019-04-30] MEDS ORDERED: KETOROLAC 30 MG/ML 1 ML VIAL IVP STA (10:29)
[2019-04-30] MEDS ORDERED: ONDANSETRON 4 MG/2 ML VIAL IVP STA (10:29)
[2019-04-30] MEDS ORDERED: diphenhydrAMINE 50 MG/ML 1 ML VIAL IVP STA (10:29)
--- NOTE | 2019-04-30 10:54 | ED ---
Headache HPI - General Chief Complaint: Headache Stated Complaint: headache,dizziness Time Seen by Provider: 04/30/19 10:04 Mode of arrival: ambulatory Limitations: no limitations - History of Present Illness Initial Comments: Patient is a 43-year-old male presenting to emergency Department with complaints of a headache 2 days. Patient states he has run out of his blood pressure medication and has not taken in the last 2-3 days. Patient states she is also feeling lightheaded most likely from not eating and drinking the last couple days. Patient states he is also out of his Spiriva inhaler. Patient states he has had migraines in the past and this feels similar nature. Patient denies any nausea, vomiting at this time. Patient denies any shortness of breath, chest p ain, fever, chills. - Related Data Home Medications Medication Instructions Recorded Confirmed Levothyroxine Sodium [Synthroid] 50 mcg PO DAILY@0500 07/13/04/30/19 ARIPiprazole [Abilify] 30 mg PO HS 06/21/17 04/30/19 lamoTRIgine [LaMICtal] 150 mg PO HS 06/21/17 04/30/19 Propranolol [Inderal] 40 mg PO BID@0900,2100 09/17/17 04/30/19 Omeprazole 20 mg PO DAILY@1200 05/23/18 04/30/19 Tiotropium 18 Mcg/Puff [Spiriva] 1 cap INHALATION RT-DAILY 05/23/18 04/30/19 Bimatoprost [Lumigan .01% Ophth 2 drop BOTH EYES HS 12/03/18 04/30/19 Soln] buPROPion XL [Wellbutrin XL] 150 mg PO DAILY@0900 04/30/19 04/30/19 Previous Rx's Medication Instructions Recorded Propranolol [Inderal] 40 mg PO BID 5 Days #10 tab 04/30/19 Tiotropium 18 Mcg/Puff [Spiriva] 1 puff INHALATION DAILY #1 device 04/30/19 Allergies Allergy/AdvReac Type Severity Reaction Status Date / Time montelukast sodium Allergy Severe Swelling Verified 04/30/19 10:30 [From [facility]] codeine Allergy Rash/Hives/ Verified 04/30/19 10:30 Itching Review of Systems ROS Statement: Those systems with pertinent positive or pertinent negative responses have been documented in the HPI. ROS Other: All systems not noted in ROS Statement are negative. Past Medical History Past Medical History: COPD, Hyperlipidemia, Hypertension, Liver Disease, Thyroid Disorder Additional Past Medical History / Comment(s): hepatitis b and c (per pt: "not detectable). SEASONAL ALLERGIES, UMBILICAL HERNIA, History of Any Multi-Drug Resistant Organisms: None Reported Past Surgical History: Hernia Repair Additional Past Surgical History / Comment(s): deviated septum repair, dental extractions WISDOM TEETH UNDER ANESTHESIA Past Anesthesia/Blood Transfusion Reactions: No Reported Reaction, Family History of Problems w/ Anesthesia Additional Past Anesthesia/Blood Transfusion Reaction / Comment(s): Pt's. sisters b/p dropped while under anesthesia Past Psychological History: Anxiety, Bipolar, Depression, Panic Disorder Smoking Status: Current some day smoker Past Alcohol Use History: Rare Past Drug Use History: None Reported - Past Family History Sister(s) Additional Family Medical History / Comment(s): He has one half sister with depression and possible borderline personality, severe COPD, irritable bowel syndrome, fibromyalgia. Brother(s) Additional Family Medical History / Comment(s): Patient has one brother with history of brain aneurysm with history of methamphetamine use. Patient does not have any children. Mother Family Medical History: COPD Additional Family Medical History / Comment(s): Other at age 54 due to an axonal drug overdose with history of coronary artery disease and Bipolar D.O. Father Family Medical History: Cancer, Coronary Artery Disease (CAD), Hypertension, Liver Disease, Myocardial Infarction ([place]) Additional Family Medical History / Comment(s): Father at age 55 due to liver cancer secondary to hepatitis C but not alcohol related [facility] [place]'s General Exam - General Exam Comments Initial Comments: GENERAL: Well-appearing, well-nourished and in no acute distress. HEAD: Atraumatic, normocephalic. EYES: Pupils equal round and reactive to light, extraocular movements intact, sclera anicteric, conjunctiva are normal. ENT: TMs normal, nares patent, oropharynx clear without exudates. Moist mucous membranes. NECK: Normal range of motion, supple without lymphadenopathy or JVD. LUNGS: Breath sounds clear to auscultation bilaterally and equal. No wheezes rales or rhonchi. HEART: Regular rate and rhythm without murmurs, rubs or gallops. ABDOMEN: Soft, nontender, normoactive bowel sounds. No guarding, no rebound. No masses appreciated. : Deferred EXTREMITIES: Normal range of motion, no pitting or edema. No clubbing or cyanosis. NEUROLOGICAL: Cranial nerves II through XII grossly intact. Normal speech, normal gait. PSYCH: Normal mood, normal affect. SKIN: Warm, Dry, normal turgor, no rashes or lesions noted. Limitations: no limitations Neurological exam: Present: alert, altered, oriented X3 Expanded Motor strength exam: RUE: 5, LUE: 5, RLE: 5, LLE: 5 Course Vital Signs 04/30/19 04/30/19 04/30/19 09:54 11:28 12:39 Temperature 98.4 F 98 F Pulse Rate 111 H 101 H 95 Respiratory 16 18 18 Rate Blood Pressure 139/86 123/82 119/78 O2 Sat by Pulse 96 97 96 Oximetry Medical Decision Making - Medical Decision Making Patient is a 43-year-old male with complaints of a headache and being without his blood pressure medication for 2-3 days. Patient states he has a history of migraines and this feels similar in nature. Patient has been on propranolol and Spiriva inhaler. Patient's exam is normal including neurology exam. Patient was given medications for his headache which did improve while he was here. Patient will be discharged home with refill on his propanolol and Spiriva inhaler. Patient states he is okay with this plan will follow up with his PCP on Wednesday. Case discussed with Dr. De Los Santos. Return parameters were discussed with the patient. - Lab Data Result diagrams: 04/30/19 10:58 04/30/19 10:58 Lab Results 04/30/19 04/30/19 04/30/19 Range/Units 10:58 10:58 10:58 WBC 10.5 (3.8-10.6) k/uL RBC 5.21 (4.30-5.90) m/uL Hgb 15.3 (13.0-17.5) gm/dL Hct 44.8 (39.0-53.0) % MCV 86.0 (80.0-100.0) fL MCH 29.3 (25.0-35.0) pg MCHC 34.1 (31.0-37.0) g/dL RDW 13.7 (11.5-15.5) % Plt Count 208 (150-450) k/uL Neutrophils % 67 % Lymphocytes % 25 % Monocytes % 5 % Eosinophils % 2 % Basophils % 1 % Neutrophils # 7.0 (1.3-7.7) k/uL Lymphocytes # 2.6 (1.0-4.8) k/uL Monocytes # 0.5 (0-1.0) k/uL Eosinophils # 0.2 (0-0.7) k/uL Basophils # 0.1 (0-0.2) k/uL Sodium 143 (137-145) mmol/L Potassium 4.2 (3.5-5.1) mmol/L Chloride 105 (98-107) mmol/L Carbon Dioxide 27 (22-30) mmol/L Anion Gap 11 mmol/L BUN 4 L (9-20) mg/dL Creatinine 1.28 H (0.66-1.25) mg/dL Est GFR (CKD-EPI)AfAm 78 (>60 ml/min/1.73 sqM) Est GFR (CKD-EPI)NonAf 67 (>60 ml/min/1.73 sqM) Glucose 102 H (74-99) mg/dL Calcium 9.7 (8.4-10.2) mg/dL Total Bilirubin 0.4 (0.2-1.3) mg/dL AST 26 (17-59) U/L ALT 33 (21-72) U/L Alkaline Phosphatase 75 (38-126) U/L Total Protein 7.5 (6.3-8.2) g/dL Albumin 4.6 (3.5-5.0) g/dL Urine Color Colorless Urine Appearance Clear (Clear) Urine pH 5.5 (5.0-8.0) Ur Specific [place] 1.003 (1.001-1.035) Urine Protein Negative (Negative) Urine Glucose (UA) Negative (Negative) Urine Ketones Negative (Negative) Urine Blood Negative (Negative) Urine Nitrite Negative (Negative) Urine Bilirubin Negative (Negative) Urine Urobilinogen <2.0 (<2.0) mg/dL Ur Leukocyte Esterase Negative (Negative) Disposition Clinical Impression: Migraine Disposition: HOME SELF-CARE Condition: Stable Instructions (If sedation given, give patient instructions): Migraine Headache (ED) Additional Instructions: Please return to the Emergency Department if symptoms worsen or any other concerns. Prescriptions: Propranolol [Inderal] 40 mg PO BID 5 Days #10 tab Tiotropium 18 Mcg/Puff [Spiriva] 1 puff INHALATION DAILY #1 device Is patient prescribed a controlled substance at d/c from ED?: No Referrals: Kristyn Keating MD [Primary Care Provider] - 1-2 days
[2019-04-30 11:14] LABS: Basophils # (A) 0.1 k/uL (0-0.2); Basophils % (A) 1 %; Eosinophils # (A) 0.2 k/uL (0-0.7); Eosinophils % (A) 2 %; HCT 44.8 % (39.0-53.0); HGB 15.3 gm/dL (13.0-17.5); Lymphocytes # (A) 2.6 k/uL (1.0-4.8); Lymphocytes % (A) 25 %; MCH 29.3 pg (25.0-35.0); MCHC 34.1 g/dL (31.0-37.0); Mean Platelet Volume 7.5; Monocytes # (A) 0.5 k/uL (0-1.0); Monocytes % (A) 5 %; Neutrophils % (A) 67 %; Platelet Count 208 k/uL (150-450); RBC 5.21 m/uL (4.30-5.90); RDW 13.7 % (11.5-15.5); WBC 10.5 k/uL (3.8-10.6)
[2019-04-30 11:18] LABS: Albumin 4.6 g/dL (3.5-5.0); Calcium 9.7 mg/dL (8.4-10.2); Potassium 4.2 mmol/L (3.5-5.1); Total Bilirubin 0.4 mg/dL (0.2-1.3); Total Protein 7.5 g/dL (6.3-8.2)
[2019-04-30 11:25] LABS: Appearance,Urine Clear (Clear); Bilirubin,Urine Negative (Negative); Blood,Urine Negative (Negative); Color,Urine Colorless; Glucose,Urine (UA) Negative (Negative); Ketones,Urine Negative (Negative); Leukocyte Esterase,Urine Negative (Negative); Nitrite,Urine Negative (Negative); PH, Urine 5.5 (5.0-8.0); Protein,Urine Negative (Negative); Specific Gravity,Urine 1.003 (1.001-1.035); Urobilinogen,Urine <2.0 mg/dL (<2.0)
[2019-04-30 11:30] VITALS: RESP 18
[2019-04-30 13:07] VITALS: BP 119/78; PULSE 95; TEMP 98
== END 2019-04-30 12:45 | disposition home or self-care (01) ==
LOC: EC 09:52
DX: G43.909 Migraine, unspecified, not intractable, without status migrainosus (principal); J44.9 Chronic obstructive pulmonary disease, unspecified; I10 Essential (primary) hypertension; E07.9 Disorder of thyroid, unspecified; F41.9 Anxiety disorder, unspecified; F32.9 Major depressive disorder, single episode, unspecified; F17.200 Nicotine dependence, unspecified, uncomplicated; Z79.890 Hormone replacement therapy; Z79.899 Other long term (current) drug therapy; Z88.8 Allergy status to other drugs, medicaments and biological substances; Z88.5 Allergy status to narcotic agent
CPT/HCPCS: 36415; 80053; 85025; 81003; 99283; 96374; 96375 ×2; 96361; J1200; J2405; J1885

== ENCOUNTER 2020-12-21 19:16 | Emergency (ER) | payer MEDICARE, OTHER ==
[2020-12-21 19:20] VITALS: BP 141/95; PULSE 82; TEMP 97.9
[2020-12-21 20:20] LABS: Appearance,Urine Turbid (Clear); Bilirubin,Urine Negative (Negative); Blood,Urine Large (Negative); Color,Urine Dark Brown; Glucose,Urine (UA) Negative (Negative); Ketones,Urine Trace (Negative); Leukocyte Esterase,Urine Small (Negative); Nitrite,Urine Negative (Negative); PH, Urine 5.5 (5.0-8.0); Protein,Urine 2+ (Negative); RBC,Urine >182 /hpf (0-5); Urobilinogen,Urine <2.0 mg/dL (<2.0); WBC,Urine 69 /hpf (0-5)
[2020-12-21 20:21] LABS: Specific Gravity,Urine >1.050 (1.001-1.035)
[2020-12-21 20:27] LABS: Basophils # (A) 0.1 k/uL (0-0.2); Basophils % (A) 1 %; Eosinophils # (A) 0.4 k/uL (0-0.7); Eosinophils % (A) 4 %; HCT 47.1 % (39.0-53.0); Lymphocytes # (A) 3.2 k/uL (1.0-4.8); Lymphocytes % (A) 32 %; MCHC 33.9 g/dL (31.0-37.0); MCV 85.6 fL (80.0-100.0); Mean Platelet Volume 7.3; Monocytes # (A) 0.6 k/uL (0-1.0); Monocytes % (A) 6 %; Neutrophils # (A) 5.6 k/uL (1.3-7.7); Neutrophils % (A) 56 %; Platelet Count 193 k/uL (150-450); RBC 5.51 m/uL (4.30-5.90); RDW 13.6 % (11.5-15.5); WBC 10.1 k/uL (3.8-10.6)
[2020-12-21 20:36] LABS: Albumin 4.6 g/dL (3.5-5.0); Calcium 9.5 mg/dL (8.4-10.2); Potassium 4.2 mmol/L (3.5-5.1); Total Bilirubin 0.6 mg/dL (0.2-1.3); Total Protein 7.4 g/dL (6.3-8.2)
[2020-12-21] MEDS ORDERED: cefTRIAXone IN SWFI 1,000 MG/10 ML SYRINGE IVP STA (21:02)
--- NOTE | 2020-12-21 21:11 | CT ---
EXAMINATION TYPE: CT abdomen pelvis wo con DATE OF EXAM: 12/21/2020 COMPARISON: 06/29/2016 HISTORY: Hematuria. CT DLP: 732 mGycm Automated exposure control for dose reduction was used. Images obtained from the diaphragm to the floor the pelvis without contrast. Lung bases are clear. There is no pleural effusion. Heart size is normal. There is no pericardial eff usion. The liver spleen stomach pancreas gallbladder appear intact.. Bile ducts are not dilated. Ther e is some regional hypodensity in the anterior liver consistent with fatty infiltration. There is no adrenal mass. Kidneys show normal size and contour. There is no hydronephrosis. There is poorly marginated 2 cm hypodense area in the interpolar left kidney. Ureters are not dilated. There i s no retroperitoneal adenopathy. Bladder distends smoothly. There is no inguinal hernia. There is no free fluid in the pelvis. Appendix is normal. There is no mesenteric edema. There is no ascites or fr ee air. There is no bowel obstruction. The lumbar vertebra have normal alignment. Disc spaces are fairly normal. There is no compression fra cture. Facet joints are normal. The bony pelvis is intact. Hip joints are intact. IMPRESSION: There is hypodense area in the left kidney which is probably new compared to old exam and of uncertai n significance. No significant mass effect. This could be focus of pyelonephritis. Ultrasound would b e helpful to exclude a mass. Normal appendix.
--- NOTE | 2020-12-21 21:38 | ED ---
General Adult HPI - General Chief complaint: Urogenital Stated complaint: Blood in Urine Source: patient Mode of arrival: ambulatory Limitations: no limitations - History of Present Illness Initial comments: Patient is a 45-year-old male with past medical history of COPD, hypertension, liver disease who presents emergency department with reported blood in his urine. Patient reports that he has history of similar in the past 3 years ago and was diagnosed with a urinary tract infection. Patient states he began having blood in his urine 3 days ago. He also developed pain in his bilateral flanks. Denies fevers or chills. No nausea or vomiting. Denies inability to void. No change in his bowel habits. Patient is not on any blood thinners. No other alleviating, precipitating or modifying factors - Related Data Home Medications Medication Instructions Recorded Confirmed Levothyroxine Sodium [Synthroid] 50 mcg PO DAILY@0500 07/13/16 04/30/19 ARIPiprazole [Abilify] 30 mg PO HS 06/21/17 04/30/19 lamoTRIgine [LaMICtal] 150 mg PO HS 06/21/17 04/30/19 Propranolol [Inderal] 40 mg PO BID@0900,2100 09/17/17 04/30/19 Omeprazole 20 mg PO DAILY@1200 05/23/18 04/30/19 Tiotropium 18 Mcg/Puff [Spiriva] 1 cap INHALATION RT-DAILY 05/23/18 04/30/19 Bimatoprost [Lumigan .01% Ophth 2 drop BOTH EYES HS 12/03/18 04/30/19 Soln] buPROPion XL [Wellbutrin XL] 150 mg PO DAILY@0900 04/30/19 04/30/19 Previous Rx's Medication Instructions Recorded Propranolol [Inderal] 40 mg PO BID 5 Days #10 tab 04/30/19 Tiotropium 18 Mcg/Puff [Spiriva] 1 puff INHALATION DAILY #1 device 04/30/19 Levofloxacin [Levaquin] 750 mg PO DAILY 1 Days #5 tab 12/21/20 Allergies Allergy/AdvReac Type Severity Reaction Status Date / Time montelukast sodium Allergy Severe Swelling Verified 12/21/20 19:20 [From [facility]] codeine Allergy Rash/Hives/ Verified 12/21/20 19:20 Itching Review of Systems ROS Statement: Those systems with pertinent positive or pertinent negative responses have been documented in the HPI. ROS Other: All systems not noted in ROS Statement are negative. Past Medical History Past Medical History: COPD, Hyperlipidemia, Hypertension, Liver Disease, Thyroid Disorder Additional Past Medical History / Comment(s): hepatitis b and c (per pt: "not detectable). SEASONAL ALLERGIES, UMBILICAL HERNIA, History of Any Multi-Drug Resistant Organisms: None Reported Past Surgical History: Hernia Repair Additional Past Surgical History / Comment(s): deviated septum repair, dental extractions WISDOM TEETH UNDER ANESTHESIA Past Anesthesia/Blood Transfusion Reactions: No Reported Reaction, Family History of Problems w/ Anesthesia Additional Past Anesthesia/Blood Transfusion Reaction / Comment(s): Pt's. sisters b/p dropped while under anesthesia Past Psychological History: Anxiety, Bipolar, Depression, Panic Disorder Smoking Status: Current every day smoker Past Alcohol Use History: Rare Past Drug Use History: None Reported - Past Family History Sister(s) Additional Family Medical History / Comment(s): He has one half sister with depression and possible borderline personality, severe COPD, irritable bowel syndrome, fibromyalgia. Brother(s) Additional Family Medical History / Comment(s): Patient has one brother with history of brain aneurysm with history of methamphetamine use. Patient does not have any children. Mother Family Medical History: COPD Additional Family Medical History / Comment(s): Other at age 54 due to an axonal drug overdose with history of coronary artery disease and Bipolar D.O. Father Family Medical History: Cancer, Coronary Artery Disease (CAD), Hypertension, Liver Disease, Myocardial Infarction ([place]) Additional Family Medical History / Comment(s): Father at age 55 due to liver cancer secondary to hepatitis C but not alcohol related [place]'s General Exam Limitations: no limitations Course Vital Signs 12/21/20 12/21/20 12/21/20 19:18 19:53 21:48 Temperature 97.9 F Pulse Rate 82 Respiratory 16 16 18 Rate Blood Pressure 141/95 O2 Sat by Pulse 99 Oximetry Medical Decision Making - Medical Decision Making Upon arrival patient is placed in room 25. A thorough history and physical exam was performed. Laboratory studies are conducted. Patient does provide a urine sample. Urinalysis demonstrates a creatinine of 1.3. Does appear that the patient has chronic kidney disease based on his previous lab values. Urinalysis demonstrates greater than 182 red blood cells and 69 white blood cells. Specimen is sent for culture. He did CT the patient's abdomen and pelvis which does not demonstrate any areas of hydronephrosis. No ureteral stones. No additional obstructive uropathy. There is a hypodense area in the left kidney which could be a focus of pyelonephritis. Results are discussed with the patient. Patient will be discharged home at this time on antibiotics. Given a dose of Rocephin the emergency room. Will be sent home on Levaquin. Patient m ust without fail see his primary care physician early next week. Discussed strict return parameters to return to the emergency room for any fevers or chills. No other alleviating, precipitating or modifying factors - Lab Data Result diagrams: 12/21/20 19:57 12/21/20 19:57 Lab Results 12/21/20 12/21/20 12/21/20 Range/Units 19:44 19:57 19:57 WBC 10.1 (3.8-10.6) k/uL RBC 5.51 (4.30-5.90) m/uL Hgb 16.0 (13.0-17.5) gm/dL Hct 47.1 (39.0-53.0) % MCV 85.6 (80.0-100.0) fL MCH 29.0 (25.0-35.0) pg MCHC 33.9 (31.0-37.0) g/dL RDW 13.6 (11.5-15.5) % Plt Count 193 (150-450) k/uL MPV 7.3 Neutrophils % 56 % Lymphocytes % 32 % Monocytes % 6 % Eosinophils % 4 % Basophils % 1 % Neutrophils # 5.6 (1.3-7.7) k/uL Lymphocytes # 3.2 (1.0-4.8) k/uL Monocytes # 0.6 (0-1.0) k/uL Eosinophils # 0.4 (0-0.7) k/uL Basophils # 0.1 (0-0.2) k/uL Sodium 137 (137-145) mmol/L Potassium 4.2 (3.5-5.1) mmol/L Chloride 100 (98-107) mmol/L Carbon Dioxide 26 (22-30) mmol/L Anion Gap 11 mmol/L BUN 14 (9-20) mg/dL Creatinine 1.30 H (0.66-1.25) mg/dL Est GFR (CKD-EPI)AfAm 75 (>60 ml/min/1.73 sqM) Est GFR (CKD-EPI)NonAf 65 (>60 ml/min/1.73 sqM) Glucose 107 H (74-99) mg/dL Calcium 9.5 (8.4-10.2) mg/dL Total Bilirubin 0.6 (0.2-1.3) mg/dL AST 34 (17-59) U/L ALT 30 (4-49) U/L Alkaline Phosphatase 68 (38-126) U/L Total Protein 7.4 (6.3-8.2) g/dL Albumin 4.6 (3.5-5.0) g/dL Urine Color Dark Brown Urine Appearance Turbid (Clear) Urine pH 5.5 (5.0-8.0) Ur Specific [place] >1.050 H (1.001-1.035) Urine Protein 2+ H (Negative) Urine Glucose (UA) Negative (Negative) Urine Ketones Trace H (Negative) Urine Blood Large H (Negative) Urine Nitrite Negative (Negative) Urine Bilirubin Negative (Negative) Urine Urobilinogen <2.0 (<2.0) mg/dL Ur Leukocyte Esterase Small H (Negative) Urine RBC >182 H (0-5) /hpf Urine WBC 69 H (0-5) /hpf Disposition Clinical Impression: Hematuria, Pyelonephritis Disposition: HOME SELF-CARE Condition: Stable Instructions (If sedation given, give patient instructions): Kidney Infection (ED) Additional Instructions: Please follow up with your primary care doctor in 2-4 days. Return to the emergency room for any new or worsening symptoms. Prescriptions: Levofloxacin [Levaquin] 750 mg PO DAILY 1 Days #5 tab Is patient prescribed a controlled substance at d/c from ED?: No Referrals: Kristyn Keating MD [Primary Care Provider] - 1-2 days Time of Disposition: 21:58
[2020-12-21 21:49] VITALS: RESP 18
== END 2020-12-21 22:05 | disposition home or self-care (01) ==
LOC: EC 19:16
DX: N12 Tubulo-interstitial nephritis, not specified as acute or chronic (principal); J44.9 Chronic obstructive pulmonary disease, unspecified; E78.5 Hyperlipidemia, unspecified; I10 Essential (primary) hypertension; E07.9 Disorder of thyroid, unspecified; F41.9 Anxiety disorder, unspecified; F31.9 Bipolar disorder, unspecified; F41.0 Panic disorder [episodic paroxysmal anxiety]; F17.200 Nicotine dependence, unspecified, uncomplicated; Z79.51 Long term (current) use of inhaled steroids; Z79.890 Hormone replacement therapy; Z79.899 Other long term (current) drug therapy; Z88.5 Allergy status to narcotic agent; Z88.8 Allergy status to other drugs, medicaments and biological substances
CPT/HCPCS: 36415; 80053; 85025; 81001; 87086; 74176; 99284; 96374; J0696